=== PATIENT | female | born 1945 | race Caucasian/White ===

== ENCOUNTER → 2016-12-23 | Outpatient (CLI) | payer OTHER | LOC: FIMAGING 14:58 | PROVIDERS: ATTEND Physician Assistant | DX: Z01.818 Encounter for other preprocedural examination (principal); K44.9 Diaphragmatic hernia without obstruction or gangrene; Z87.891 Personal history of nicotine dependence | CPT/HCPCS: 36415-PO; G0463-PO ==

== ENCOUNTER 2017-01-17 08:47 | Inpatient (IN) | payer OTHER ==
--- NOTE | 2017-01-16 18:44 | GHP ---
[f rep st] PREOP HISTORY AND PHYSICAL DATE OF ADMISSION: 01/17/2017 HISTORY: The patient is a 71-year-old female, who presents with quite chronic and severe left knee pain, swelling, and stiffness. About 12 years ago, she had an allograft ACL reconstruction. Her knee has been stable. For the last year, she has been having pain, swelling, mechanical symptoms, largest focus laterally. She gets a sense of grinding and ratcheting in the knee. This impacts her gait, her activities of daily living. Her symptoms prompted an MRI that shows tricompartment osteoarthritis. Most severely, the lateral aspect of the left knee has a large broad areas of eefu-pe-pbte contact and wear. She has tried appropriate conservative management of her knee. She is significantly limited at this point and has elected to undergo a left total knee arthroplasty. PAST MEDICAL HISTORY: Significant, she has a history of persistent insomnia, obstructive sleep apnea, central sleep apnea, parasomnia, restless legs, cataplexy, and narcolepsy, GI reflux. She has a history of breast cancer. She has had peripheral vascular disease and femoral artery stents. She has had many surgeries. MEDICATIONS: Atorvastatin 20 mg p.o. daily; clonazepam 1 mg tablet, 1 tablet at bedtime; gabapentin 300 mg tablets at bedtime; losartan hydrochlorothiazide 100/125 one tablet daily; methylphenidate 20 mg tablets twice daily; metoprolol ER 25 extended release q.24; omeprazole 40 mg p.o. daily; potassium chloride ER 10 mEq 3 times a day; pramipexole 0.125 mg tablets twice a day; sulfasalazine 500 mg tablet delayed release t.i.d.; temazepam 30 mg tablets, 1 tablet q.h.s.; venlafaxine ER 150 mg capsules extended release q.24; Coumadin or warfarin 5 mg p.o. daily. ALLERGIES: She has an allergy to penicillin, shellfish, and iodinated contrast media. SOCIAL HISTORY: She is a 1/2 vvhj-civ-ziz smoker. REVIEW OF SYSTEMS: See medical history. PHYSICAL EXAMINATION: GENERAL: The patient is a well-developed, well- nourished female, in no apparent distress. HEAD AND NECK: Normocephalic, atraumatic. CHEST: Clear. CARDIOVASCULAR: Regular rate and rhythm. ABDOMEN : Soft. NEUROLOGIC: She is alert and oriented x3. Exam of the left knee shows full extension. She flexes to about 120 degrees. She has an effusion. No erythema or warmth. Angel Luis test shows an end point. Negative pivot shift. No posterior sag. Collateral ligament stable. She does have some joint line tenderness. Positive lateral Neeraj test. She has about 10 degrees of valgus alignment. IMPRESSION: Left knee osteoarthrosis, predominantly fatt-ld-foqe lateral compartment. PLAN: A left total knee arthroplasty. Benefits and risks of surgery have been reviewed. She understands that the risks include infection, damage to blood vessels or nerves, failure or loosening of components, need for revision, blood clot in the leg or lungs, bleeding and the need for transfusion. She has signed a consent form and she wishes to proceed. /[id number]/MODL MTDD
[2017-01-17] MEDS ORDERED: ceFAZolin 1 GM/5 ML SYR ONE (09:33)
[2017-01-17] MEDS ORDERED: DEXAMETHASONE 4 MG/ML VIAL ONE (09:50)
[2017-01-17] MEDS ORDERED: FAMOTIDINE 20 MG TAB ONE (09:50)
[2017-01-17] MEDS ORDERED: ACETAMINOPHEN 325 MG TAB ONE (09:51)
[2017-01-17 10:00] LABS: INR 1.1 (0.83-1.16); PROTIME(PATIENT) 14.1 SEC (12.0-15.0)
[2017-01-17] MEDS ORDERED: ACETAMINOPHEN 325 MG TAB PO ONE (10:00)
[2017-01-17] MEDS ORDERED: CHLORHEXIDINE GLUC HIBICLENS 118 ML BTL TP ONE (10:00)
[2017-01-17] MEDS ORDERED: CEFAZOLIN 2 GM/DEXTR 100 ML IV ONE (10:00)
[2017-01-17] MEDS ORDERED: POVIDONE-IODINE 20 ML in SODIUM CL IRRIG SOLUTION 500 ML IRR ONE (10:00)
[2017-01-17] MEDS ORDERED: ROPI/epiNEPH/KETOROLAC JOINT COCKTAIL IU ONE (10:00)
[2017-01-17] MEDS ORDERED: DEXAMETHASONE 4 MG/ML VIAL IVP ONE (10:00)
[2017-01-17] MEDS ORDERED: FAMOTIDINE 20 MG TAB PO ONE (10:00)
[2017-01-17] MEDS ORDERED: MIDAZOLAM 2 MG/2 ML VIAL ONE ×2 (10:00→10:06)
[2017-01-17] MEDS ORDERED: fentaNYL 100 MCG/2 ML INJ ONE (10:06)
[2017-01-17] MEDS ORDERED: PROPOFOL/EMULSION 500 MG/50 ML BOTTLE IV ONE (10:06)
[2017-01-17] MEDS ORDERED: LIDO/EPI 1% **for epidural** 30 ML SDV ONE (10:26)
[2017-01-17] MEDS ORDERED: LIDOCAINE 1% 5 ML SDV ONE (10:27)
[2017-01-17] MEDS ORDERED: ONDANSETRON 4 MG/2 ML VIAL ONE (11:51)
[2017-01-17] MEDS ORDERED: ROPIVACAINE HCL 150 MG/30 ML INJ ONE (11:51)
[2017-01-17] MEDS ORDERED: BUPIVACAINE 0.5% 30 ML SDV ONE (12:20)
[2017-01-17] MEDS ORDERED: DEPO METHYLPREDNISOLONE 40 MG/ML SDV ONE (12:21)
[2017-01-17] MEDS ORDERED: DIPHENOXYLATE/ATROPINE LOMOTIL 1 TAB PO PRN (12:53)
[2017-01-17] MEDS ORDERED: diphenhydrAMINE 25 MG CAP PO PRN (12:53)
[2017-01-17] MEDS ORDERED: ONDANSETRON 4 MG/2 ML VIAL IVP PRN (12:53)
[2017-01-17] MEDS ORDERED: POLYETHYLENE GLYCOL 3350 17 GM PKT PO PRN (12:53)
[2017-01-17] MEDS ORDERED: PROMETHAZINE HCL 25 MG SUPPR PR PRN (12:53)
[2017-01-17] MEDS ORDERED: METOCLOPRAMIDE 10 MG/2 ML VIAL IVP PRN (12:53)
[2017-01-17] MEDS ORDERED: ONDANSETRON DISINTEGRATING 4 MG TAB PO PRN (12:53)
[2017-01-17] MEDS ORDERED: BISACODYL 10 MG SUPP PR PRN (12:53)
[2017-01-17] MEDS ORDERED: TEMAZEPAM 15 MG CAP PO PRN (12:53)
[2017-01-17] MEDS ORDERED: MAGNESIUM HYDROXIDE 30 ML UDCUP PO PRN (12:53)
[2017-01-17] MEDS ORDERED: LACTULOSE 20 GM/30 ML UDCUP PO PRN (12:53)
[2017-01-17] MEDS ORDERED: PHARMACY PAIN CONSULT 1 EA MISC PRN (12:53)
--- NOTE | 2017-01-17 13:56 | GOP ---
[f rep st] OPERATIVE REPORT DATE OF OPERATION: 01/17/2017 SURGEON: Onel Vargas MD MANAGER FINE: José Luis Lamb [facility] ANESTHESIOLOGIST: Avani Rojas DO PREOPERATIVE DIAGNOSIS: Left knee osteoarthritis, retained hardware. POSTOPERATIVE DIAGNOSIS: Left knee osteoarthritis, retained hardware. PROCEDURE PERFORMED: Left total knee arthroplasty with hardware removal distal femur, proximal tibi a. Also, steroid injection right knee for osteoarthritis. FINDINGS: SPECIMENS: Include excised bone. ESTIMATED BLOOD LOSS: Minimal. INDICATIONS: The patient is a 71-year-old female who presents with chronic and severe left knee marquez n. She has significant osteoarthritis qxfh-rx-djew in broad areas of the lateral compartment. A le ft total knee arthroplasty is planned. She does have history of previous ACL reconstruction and has retained hardware distal femur, proximal tibia, which is screw post fixation with a Synthes screw a nd washer. Both of these will need to be removed. DESCRIPTION OF PROCEDURE: The patient was taken to the operating room, and in the seated position, Dr. Rojas provided a spinal block. She then received IV sedation. She received Ancef IV antibiot ics. She was placed supine with a towel beneath the left hip to neutralize her rotation. Tournique t was fit high on the left thigh. The left leg was prepped and draped with chlorhexidine in the usu al fashion. The limb was elevated, exsanguinated, the tourniquet inflated to 275 mmHg. I made a lo ngitudinal incision in the midline, dissected through subcutaneous tissue, and used a medial parapat ellar arthrotomy. Patella was inverted, measured its thickness, and removed 9 mm of cartilage and b one to accommodate the implant. The patella was sized to a 32. I drilled peg holes, and the combin ation of the sleetmute patella and the trial component restored the thickness of the patella. By inver ting the patella, I was able to dissect down to the screw in the distal femur. I did need to make a small incision about an inch along the distal lateral thigh so that I could engage the screw with a screwdriver. Because this was a partially threaded screw, I did need to grasp the screw with plier s, vice brass bobbin winder, and then hold retraction pressure on it to get the threads to re-engage and allow me t o back out the screw. It was removed in its entirety with no breakage. The washer was as well as w ell as the suture. I then flexed the knee. I drilled a pilot plant supervisor hole in the distal femur. I used an intramedullary device and a 6-degree valgus cut with +2 extra bone because of the flexion contractur e, and I made a distal cut. I sized the femur between a size 4 and a 5, and I downsized to a 4, mov ed the cutting block anteriorly to avoid notching and completed my chamfer cuts and notch cuts for t his bi-cruciate stabilized knee. The trial component was a good fit. On the tibia, I used an extra medullary device. I dialed in the rotation, posterior slope. I sized the tibia after the cut to a size 3. I dialed in the rotation and completed the tibial prep. This did require removing the scre w and washer in the tibia in order to complete the tibial prep. A size 9 trial allowed good range o f motion. All the components were removed. All the surfaces were jet lavaged with antibiotic irrig ation. I used methylmethacrylate on the tibia. Size 3 component was hammered into place in the samra ropriate rotation. Cement was applied to the femur. Likewise, the femoral component was applied ov er the cement mantle, and I placed a liner and extended the knee to provide pressure. The patellar component was held over a cement mantle with a clamp. I did trial reductions. I went with a 9 mm t hick crosslink poly liner. This was snapped into the tibial tray, and the total knee was then compl ete. Copious antibiotic irrigation was used. I infiltrated a total joint cocktail through the soft tissues. The arthrotomy was closed with interrupted 0 sutures of 0 Mersilene. The IT band was cheli sed with 2-0 Monocryl. The subcutaneous tissue was closed with 2-0 Monocryl, and the skin was close d in all wounds with teresa. The wound was dressed with Adaptic, 4 x 4's, sterile Webril, and a lo ng leg stocking. The tourniquet time was about 1 hour and 45 minutes. There were no complications. DRAINS: No drains. COUNTS: All counts were correct. I did use a chlorhexidine prep for the right knee, and through a lateral approach, used 1 cc of Depo -Medrol 40 mg/cc, and 3 cc of 0.5% plain Marcaine to inject the arthritic right knee at the patient' s request. SUMMARY OF COMPONENTS: This is a [employer] bi-cruciate stabilized knee, all componen ts cemented. The femur is an Oxinium femur size 4, tibia size 3. Patella is a 32, and the articula r liner is 9 mm thick. My surgical aides teacher was a medical necessity for this total knee replacement. /[id number]/MODL
[2017-01-17] MEDS: oxyCODONE IR 5 MG TAB PO PRN ×2 (14:35→22:41)
[2017-01-17] MEDS: ceFAZolin 2 GM/DEXTROSE 100 ML IV SCH ×2 (14:36→21:16)
[2017-01-17] MEDS: LR 1,000 ML IV SCH (14:37)
[2017-01-17] MEDS: POTASSIUM CL 10 MEQ TAB PO SCH ×2 (15:36→21:16)
[2017-01-17] MEDS: sulfaSALAzine 500 MG TAB PO SCH ×2 (15:37→21:17)
[2017-01-17] MEDS ORDERED: WARFARIN SODIUM 2.5 MG TAB PO SCH (16:00)
[2017-01-17] MEDS: ACETAMINOPHEN 325 MG TAB PO SCH ×2 (17:57→23:47)
[2017-01-17] MEDS: SENNOSIDES/DOCUSATE SODIUM TAB PO SCH (21:14)
[2017-01-17] MEDS: GABAPENTIN 300 MG CAP PO SCH (21:14)
[2017-01-17] MEDS: FAMOTIDINE 20 MG TAB PO SCH (21:15)
[2017-01-17] MEDS: clonazePAM 0.5 MG TAB PO SCH (21:15)
[2017-01-17] MEDS: WARFARIN SODIUM 2.5 MG TAB PO SCH (21:16)
[2017-01-17] MEDS: PRAMIPEXOLE 0.125 MG TAB PO SCH (21:18)
[2017-01-17] MEDS: TEMAZEPAM 15 MG CAP PO PRN (22:34)
[2017-01-17] MEDS: ASPIRIN 325 MG TAB PO SCH (22:43)
[2017-01-18] MEDS: CYCLOBENZAPRINE 10 MG TAB PO PRN ×2 (02:53→21:18)
[2017-01-18 04:49] LABS: HEMATOCRIT 29.3 % (38.0-47.0); HEMOGLOBIN 9.7 g/dL (12.6-16.3)
[2017-01-18] MEDS: ACETAMINOPHEN 325 MG TAB PO SCH ×4 (05:44→23:41)
--- NOTE | 2017-01-18 08:28 | SOAPPROG ---
SOAP Progress Note Assessment/Plan: Assessment: 01/18/17 POD#1 L TKA, pain controlled, xray fine, dressing changed yest, some drainage Plan: 01/18/17 08:25 PT/OT, multiple med problems, will need rehab stay- [facility] Objective: Vital Signs Temp Pulse Resp BP Pulse Ox 36.6 C 91 18 126/70 H 94 01/18/17 03:18 01/18/17 07:55 01/18/17 07:55 01/18/17 07:55 01/18/17 07:55 Laboratory Results 01/18/17 04:26 01/17/17 01/18/17 01/19/17 05:59 05:59 05:59 Intake Total 3625 Output Total 1205 Balance 2420 PT 14.1 SEC (12.0-15.0) 01/17/17 09:40 INR 1.10 (0.83-1.16) 01/17/17 09:40 ICD10 Worksheet Patient Problems: Problems Problem Status Onset Osteoarthritis of left knee Acute - ICD10 Problem Qualifiers (1) Osteoarthritis of left knee Qualifiers: Osteoarthritis type: O
[2017-01-18] MEDS ORDERED: NON-FORMULARY NEW DRUG (Losartan/Hydrochlorothiazide [Losartan-Hctz 100-25 Mg Tab] 1 EACH) PO SCH (09:00)
[2017-01-18] MEDS ORDERED: NON-FORMULARY NEW DRUG (Omeprazole [Prilosec 20 Mg] 20 MG) PO SCH (09:00)
[2017-01-18] MEDS: PRAMIPEXOLE 0.125 MG TAB PO SCH ×2 (09:18→19:54)
[2017-01-18] MEDS: LOSARTAN/HCTZ 50/12.5 1 TAB PO SCH (09:18)
[2017-01-18] MEDS: FAMOTIDINE 20 MG TAB PO SCH ×2 (09:19→19:55)
[2017-01-18] MEDS: POTASSIUM CL 10 MEQ TAB PO SCH ×3 (09:19→19:59)
[2017-01-18] MEDS: PANTOPRAZOLE SODIUM 40 MG TAB PO SCH (09:19)
[2017-01-18] MEDS: ATORVASTATIN CALCIUM 20 MG TAB PO SCH (09:19)
[2017-01-18] MEDS: VENLAFAXINE XR 75 MG CAP PO SCH (09:19)
[2017-01-18] MEDS: CHOLECALCIFEROL VIT D3 2,000 UNITS TAB/CAP PO SCH (09:19)
[2017-01-18] MEDS: SENNOSIDES/DOCUSATE SODIUM TAB PO SCH ×2 (09:20→19:54)
[2017-01-18] MEDS: METOPROLOL SUCCINATE XR 25 MG TAB PO SCH (09:20)
[2017-01-18] MEDS: oxyCODONE IR 5 MG TAB PO PRN ×4 (09:31→21:14)
[2017-01-18] MEDS: KETOROLAC 30 MG/1 ML SDV IVP PRN (09:31)
[2017-01-18] MEDS: ASPIRIN 325 MG TAB PO SCH (10:03)
[2017-01-18] MEDS: sulfaSALAzine 500 MG TAB PO SCH ×3 (11:35→19:59)
[2017-01-18] MEDS: GABAPENTIN 300 MG CAP PO SCH (19:52)
[2017-01-18] MEDS: TEMAZEPAM 15 MG CAP PO PRN (19:52)
[2017-01-18] MEDS: clonazePAM 0.5 MG TAB PO SCH (19:53)
[2017-01-18] MEDS: WARFARIN SODIUM 2.5 MG TAB PO SCH (19:53)
[2017-01-18] MEDS: LR 1,000 ML IV SCH (23:51)
[2017-01-19 05:26] LABS: HEMATOCRIT 24.4 % (38.0-47.0)
[2017-01-19] MEDS: ACETAMINOPHEN 325 MG TAB PO SCH ×4 (05:28→23:06)
[2017-01-19] MEDS: PRAMIPEXOLE 0.125 MG TAB PO SCH ×2 (07:57→21:25)
[2017-01-19] MEDS: VENLAFAXINE XR 75 MG CAP PO SCH (07:57)
[2017-01-19] MEDS: POTASSIUM CL 10 MEQ TAB PO SCH ×3 (07:58→21:25)
[2017-01-19] MEDS: FAMOTIDINE 20 MG TAB PO SCH ×2 (07:58→21:25)
[2017-01-19] MEDS: sulfaSALAzine 500 MG TAB PO SCH ×3 (07:58→21:24)
[2017-01-19] MEDS: CHOLECALCIFEROL VIT D3 2,000 UNITS TAB/CAP PO SCH (07:58)
[2017-01-19] MEDS: KETOROLAC 30 MG/1 ML SDV IVP PRN (07:59)
[2017-01-19] MEDS: ATORVASTATIN CALCIUM 20 MG TAB PO SCH (07:59)
[2017-01-19] MEDS: PANTOPRAZOLE SODIUM 40 MG TAB PO SCH (07:59)
[2017-01-19] MEDS: SENNOSIDES/DOCUSATE SODIUM TAB PO SCH ×2 (10:09→21:24)
[2017-01-19] MEDS: LOSARTAN/HCTZ 50/12.5 1 TAB PO SCH (12:41)
[2017-01-19] MEDS: METOPROLOL SUCCINATE XR 25 MG TAB PO SCH (12:42)
[2017-01-19] MEDS: oxyCODONE IR 5 MG TAB PO PRN (16:52)
--- NOTE | 2017-01-19 17:25 | SOAPPROG ---
SOAP Progress Note Assessment/Plan: Assessment: 01/18/17 POD#1 L TKA, pain controlled, xray fine, dressing changed yest, some drainage 01/19/17, POD#2, has been up Plan: 01/18/17 08:25 PT/OT, multiple med problems, will need rehab stay- [facility] 01/19/17 17:23 To [facility] jeannie, oxy Rx in chart, back on Coumadin Objective: Vital Signs Temp Pulse Resp BP Pulse Ox 36.4 C 128 H 20 117/53 L 93 01/19/17 07:11 01/19/17 16:00 01/19/17 16:00 01/19/17 16:00 01/19/17 16:00 Laboratory Results 01/19/17 04:32 01/18/17 01/19/17 01/20/17 05:59 05:59 05:59 Intake Total 3625 1350 500 Output Total 1205 900 Balance 2420 450 500 PT 14.1 SEC (12.0-15.0) 01/17/17 09:40 INR 1.10 (0.83-1.16) 01/17/17 09:40 ICD10 Worksheet Patient Problems: Problems Problem Status Onset Chronic Disease Mgmt/Transitional Care Acute Osteoarthritis of left knee Acute - ICD10 Problem Qualifiers (1) Osteoarthritis of left knee Qualifiers: Osteoarthritis type: O
[2017-01-19] MEDS ORDERED: NS 1,000 ML IV SCH (20:15)
[2017-01-19] MEDS: GABAPENTIN 300 MG CAP PO SCH (21:24)
[2017-01-19] MEDS: WARFARIN SODIUM 2.5 MG TAB PO SCH (21:25)
[2017-01-19] MEDS: clonazePAM 0.5 MG TAB PO SCH (21:25)
[2017-01-19] MEDS ORDERED: LR 1,000 ML IV ONE (21:30)
[2017-01-19 21:53] LABS: HEMATOCRIT 24.9 % (38.0-47.0); HEMOGLOBIN 8.4 g/dL (12.6-16.3); MEAN CELL HEMOGLOBIN 33.6 pg (27.9-34.1); MEAN CELL HEMOGLOBIN CONCENTR. 33.7 g/dL (32.4-36.7); MEAN CELL VOLUME 99.6 fL (81.5-99.8); RED BLOOD CELL COUNT 2.5 10^6/uL (4.18-5.33); RED CELL DISTRIBUTION WIDTH 13.1 % (11.5-15.2)
[2017-01-19] MEDS: CYCLOBENZAPRINE 10 MG TAB PO PRN (23:05)
[2017-01-20 04:51] LABS: % IMMATURE GRANULYOCYTES 0.9 % (0.0-1.1); ABSOLUTE IMMATURE GRANULOCYTES 0.14 10^3/uL (0.00-0.10); ADD DIFF? NO; ADD MORPH? NO; ADD SCAN? NO; ATYPICAL LYMPHOCYTE FLAG 0 (0-99); FRAGMENT RBC FLAG 0 (0-99); HEMATOCRIT 25.2 % (38.0-47.0); HEMOGLOBIN 8.3 g/dL (12.6-16.3); LEFT SHIFT FLG 10 (0-99); LIPEMIA HEMOLYSIS FLAG 80 (0-99); MEAN CELL HEMOGLOBIN 32.8 pg (27.9-34.1); MEAN CELL HEMOGLOBIN CONCENTR. 32.9 g/dL (32.4-36.7); MEAN CELL VOLUME 99.6 fL (81.5-99.8); PLATELET CLUMPS FLAG 20 (0-99); PLATELET COUNT 198 10^3/uL (150-400); RED BLOOD CELL COUNT 2.53 10^6/uL (4.18-5.33); RED CELL DISTRIBUTION WIDTH 13.2 % (11.5-15.2)
[2017-01-20 04:57] LABS: INR 1.57 (0.83-1.16); PROTIME(PATIENT) 18.8 SEC (12.0-15.0)
[2017-01-20 05:06] LABS: ALANINE AMINOTRANSFERASE 43 IU/L (9-52); ALBUMIN 3.3 g/dL (3.5-5.0); ALKALINE PHOSPHATASE 127 IU/L (38-126); ANION GAP 8 mEq/L (8-16); ASPARTATE AMINOTRANSFERASE 48 IU/L (14-46); BILIRUBIN,TOTAL 1.2 mg/dL (0.1-1.4); CALCIUM 8.6 mg/dL (8.5-10.4); CARBON DIOXIDE 24 mEq/l (22-31); CHLORIDE 104 mEq/L (97-110); CREATININE 0.7 mg/dL (0.6-1.0); GLOMERULAR FILTRATION RATE > 60; GLUCOSE 104 mg/dL (70-100); POTASSIUM 4.1 mEq/L (3.5-5.2); SODIUM 136 mEq/L (134-144); TOTAL PROTEIN 5.6 g/dL (6.3-8.2)
--- NOTE | 2017-01-20 05:09 | CPEKG ---
Heart Rate: 103 RR Interval: 583 P-R Interval: 180 QRSD Interval: 72 QT Interval: 336 QTC Interval: 440 P Kouts: 60 QRS Kouts: 23 T Wave Kouts: 85 EKG Severity - BORDERLINE ECG - EKG Impression: SINUS TACHYCARDIA EKG Impression: BORDERLINE T WAVE ABNORMALITIES Electronically Signed By: Juan Matt 20-Jan-2017 08:59:15
--- NOTE | 2017-01-20 05:28 | PDHOSCONS ---
Hospitalist Consult Hospitalist Consult: Reason for consult: tachycardia, hypoxia post-op Consulting service: Ortho surgery HPI: Patient is a 71 year old female with HLD, HTN, PAD s/p femoral PCI, ROSITA, GERD and cataplexy/narcolepsy who was admitted to [facility] on 01/16 for elective L TKA due to severe osteoarthritis of her L knee. This surgery was completed on 01/17 without complication and she was returned to the med/surg floor hemodynamically stable with planning for dc to DL being initiated. On the evening of 01/19, patient was noted to be tachycardic to the 130-range, as well as hypoxic to 88% on room air, prompting a hospitalist consult. On my evaluation, patient was sleeping comfortably with her nasal CPAP in place. She reported that she did notice a new cough over the past day, but denied any obvious fever, chills, headache, shortness of breath or chest pain. She reported a new RUQ pain also, but denied nausea, vomiting or diarrhea, had been tolerating her diet well. She has not yet had a BM post-op, but is passing flatus. Longitudinal PMH: ROSITA on CPAP nightly Hypertension Hyperlipidemia PAD s/p femoral a PCI cataplexy/narcolepsy with emotional stress GERD PSH: L ACL repair Hand surgery L TKA 01/17/2017 Allergies: PCN, Iodine, shellfish SH: former tobacco use, quit 5 years ago; 1 glass wine nightly; no recreational drug use. Patient lives alone, is independent at baseline. FH: noncontributary. PE: BP 101/58 HR 100 O2 Sat 94% on CPAP 2L Gen: obese F, NAD HEENT: mmm, PERRL Neck: supple, no JVD CV: RRR, no murmurs Resp: CTA, no crackles or rhonchi Abd: +BS, significant tenderness to palpation of RUQ, no other tenderness; no guarding or rebound Ext: LLE in brace, peripheral pulses palpable Neuro: AO x 3, answers questions/follows commands appropriately; CN II-XII grossly intact; moving all extremities 02/18 Labs: CBC: 16.6 > 8.3 / 25.2 < 198 PT/INR: 18/1.57 DDimer: 1.23 BMP: 136 / 4.1 / 104 / 24 / 13 / 0.7 < 104 LFTs: 5.6 / 3.3 / 1.2 / / 48 / 43 < 127 Imaging: CXR: L lower lobe infiltrate EKG: sinus tachycardia without obvious st/t wave changes Impression/plan: Patient is a 71 year old female with HTN, HLD, cataplexy, PAD s/p femoral PCI, ROSITA, GERD and severe osteoarthritis of L knee who underwent L TKA on 01/17. Post- op course has been complicated by hypoxia and tachycardia on 01/19, for which the hospitalist service was consulted. Initial work up for this has revealed new leukocytosis and cxr showing LLL infiltrate, appearing consistent with pneumonia. #acute hypoxic respiratory failure Patient POD 2 developed hypoxia and tachycardia, which could be due to atelectasis, however, CXR reveals new LLL infiltrate. This as well as new leukocytosis makes sepsis due to acute LLL pneumonia likely. Differential also include acute pulmonary embolism, given patient has been off anticoagulation in the perioperative period (has been on SCDs, restarted on coumadin on 01/19). Patient has noted contrast dye allergy, so cannot obtain CT angio, will consider V/Q for definitive PE assessment, if no significant improvement with antibiotics. # tachycardia EKG shows sinus tachycardia without obvious ischemic changes. Likely related to early/mild sepsis, improved with IVF bolus and hydration. Could also be related to relative anemia from post-op blood loss. H/H seems to have stabilized, will cont to monitor HR and CBC. # RUQ abdominal pain On my exam, patient complained of acute RUQ abdominal pain and had positive yates's sign on exam. Will check Abd US to r/o gallbladder pathology. LFTs appear normal. # HLD/HTN Cont home meds. # dispo: DC to DL pending above evalation # gen: Full code
[2017-01-20] MEDS: ACETAMINOPHEN 325 MG TAB PO SCH ×4 (05:47→18:18)
--- NOTE | 2017-01-20 07:52 | SOAPPROG ---
SOAP Progress Note Assessment/Plan: Assessment: 01/18/17 POD#1 L TKA, pain controlled, xray fine, dressing changed yest, some drainage 01/19/17, POD#2, has been up 01/20/17, POD#3, yesterday dev tackycardia, LLL infiltrate/ pneumonia, hospitalist consult appreciated Plan: 01/18/17 08:25 PT/OT, multiple med problems, will need rehab stay- [facility] 01/19/17 17:23 To [facility] jeannie, oxy Rx in chart, back on Coumadin 01/20/17 07:49 Abx, hold on transfer Objective: Vital Signs Temp Pulse Resp BP Pulse Ox 37.1 C 108 H 16 101/58 L 90 L 01/19/17 23:34 01/20/17 06:39 01/20/17 06:39 01/19/17 23:58 01/20/17 06:39 Laboratory Results 01/20/17 04:39 01/20/17 04:39 01/19/17 01/20/17 01/21/17 05:59 05:59 05:59 Intake Total 1350 2050 Output Total 900 900 Balance 450 1150 PT 18.8 SEC (12.0-15.0) H 01/20/17 04:39 INR 1.57 (0.83-1.16) H 01/20/17 04:39 ICD10 Worksheet Patient Problems: Problems Problem Status Onset Chronic Disease Mgmt/Transitional Care Acute Osteoarthritis of left knee Acute - ICD10 Problem Qualifiers (1) Osteoarthritis of left knee Qualifiers: Osteoarthritis type: O
[2017-01-20] MEDS: PRAMIPEXOLE 0.125 MG TAB PO SCH ×2 (08:03→20:23)
[2017-01-20] MEDS: CHOLECALCIFEROL VIT D3 2,000 UNITS TAB/CAP PO SCH (08:04)
[2017-01-20] MEDS: SENNOSIDES/DOCUSATE SODIUM TAB PO SCH ×2 (08:04→20:28)
[2017-01-20] MEDS: POTASSIUM CL 10 MEQ TAB PO SCH ×3 (08:04→20:22)
[2017-01-20] MEDS: VENLAFAXINE XR 75 MG CAP PO SCH (08:05)
[2017-01-20] MEDS: PANTOPRAZOLE SODIUM 40 MG TAB PO SCH (08:05)
[2017-01-20] MEDS: FAMOTIDINE 20 MG TAB PO SCH ×2 (08:05→20:23)
[2017-01-20] MEDS: ATORVASTATIN CALCIUM 20 MG TAB PO SCH (08:05)
[2017-01-20] MEDS: sulfaSALAzine 500 MG TAB PO SCH ×3 (08:05→20:23)
[2017-01-20] MEDS: METOPROLOL SUCCINATE XR 25 MG TAB PO SCH (08:09)
[2017-01-20] MEDS: LOSARTAN/HCTZ 50/12.5 1 TAB PO SCH (08:09)
[2017-01-20] MEDS ORDERED: methylPREDNISolone SOD SUCC 125 MG/2 ML VIAL IVP ONE (11:51)
[2017-01-20] MEDS ORDERED: FAMOTIDINE 20 MG in NS 100 ML IV ONE (11:57)
[2017-01-20] MEDS ORDERED: FAMOTIDINE 20 MG/NACL 50 ML IV ONE (12:30)
[2017-01-20] MEDS ORDERED: IOPAMIDOL (ISOVUE 370) 100 ML BTL IV ONE (12:43)
[2017-01-20] MEDS ORDERED: FUROSEMIDE 40 MG/4 ML VIAL IVP ONE (15:53)
--- NOTE | 2017-01-20 16:01 | HOSPPROG ---
Hospitalist Progress Note Assessment/Plan: * postoperative hypoxia tachycardia * CT scan chest negative for pulmonary embolism * I am wondering if there may be an element of fluid overload * will give a dose of Lasix and stop IV fluids * in sinus rhythm * recent left knee arthroplasty * anemia secondary to acute blood loss * probably hold off on blood for now * abdominal pain * resolved * abdominal ultrasound negative *ROSITA on CPAP nightly * history of Hypertension * on metoprolol *Hyperlipidemia *PAD s/p femoral a PCI\ * had been on Coumadin which has been restarted but subtherapeutic *cataplexy/narcolepsy with emotional stress *GERD * DVT prophylaxis * will start Lovenox while Coumadin comes therapeutic Subjective: does not feel particularly short of breath. No cough Objective: Vital Signs Temp Pulse Resp BP Pulse Ox 36.8 C 113 H 18 111/61 87 L 01/20/17 15:48 01/20/17 15:48 01/20/17 15:48 01/20/17 15:48 01/20/17 15:48 Laboratory Results 01/20/17 04:39 01/20/17 04:39 01/19/17 01/20/17 01/21/17 05:59 05:59 05:59 Intake Total 1350 2050 Output Total 900 900 Balance 450 1150 PT 18.8 SEC (12.0-15.0) H 01/20/17 04:39 INR 1.57 (0.83-1.16) H 01/20/17 04:39 discussed with Orthopedic surgery chest x-ray personally viewed interpreted as well as CT scan of the chest, mild atelectasis and bilateral pleural effusions - Physical Exam Constitutional: no apparent distress, appears nourished, not in pain Eyes: anicteric sclera, EOMI Ears, Nose, Mouth, Throat: moist mucous membranes, hearing normal, ears appear normal Cardiovascular: no murmur, rub, or gallop, tachycardia Respiratory: no respiratory distress, no rales or rhonchi, clear to auscultation Gastrointestinal: normoactive bowel sounds, soft, non-tender abdomen, no palpable masses Skin: warm Neurologic: AAOx3 Psychiatric: interacting appropriately, not anxious, not encephalopathic, thought process linear ICD10 Worksheet Patient Problems: Problems Problem Status Onset Chronic Disease Mgmt/Transitional Care Acute Osteoarthritis of left knee Acute
[2017-01-20] MEDS: ENOXAPARIN 40 MG/0.4 ML SYR SC SCH (16:22)
[2017-01-20] MEDS: GABAPENTIN 300 MG CAP PO SCH (20:23)
[2017-01-20] MEDS: WARFARIN SODIUM 2.5 MG TAB PO SCH (20:23)
[2017-01-20] MEDS: clonazePAM 0.5 MG TAB PO SCH (20:23)
[2017-01-20] MEDS: oxyCODONE IR 5 MG TAB PO PRN (21:40)
[2017-01-20] MEDS: CYCLOBENZAPRINE 10 MG TAB PO PRN (21:41)
[2017-01-21] MEDS: ACETAMINOPHEN 325 MG TAB PO SCH ×4 (02:17→17:38)
[2017-01-21 05:21] LABS: ABSOLUTE NRBC COUNT 0.02 10^3/uL (0-0.01); ADD DIFF? YES; ADD MORPH? NO; ADD SCAN? NO; ATYPICAL LYMPHOCYTE FLAG 0 (0-99); FRAGMENT RBC FLAG 0 (0-99); HEMATOCRIT 25.6 % (38.0-47.0); HEMOGLOBIN 8.4 g/dL (12.6-16.3); LEFT SHIFT FLG 0 (0-99); LIPEMIA HEMOLYSIS FLAG 80 (0-99); MEAN CELL HEMOGLOBIN 33.5 pg (27.9-34.1); MEAN CELL HEMOGLOBIN CONCENTR. 32.8 g/dL (32.4-36.7); MEAN PLATELET VOLUME 10.2 fL (8.7-11.7); NRBC-AUTO% 0.1 % (0.0-0.2); PLATELET CLUMPS FLAG 0 (0-99); PLATELET COUNT 240 10^3/uL (150-400); RED BLOOD CELL COUNT 2.51 10^6/uL (4.18-5.33); RED CELL DISTRIBUTION WIDTH 13.4 % (11.5-15.2)
[2017-01-21 05:37] LABS: ANION GAP 10 mEq/L (8-16); CALCIUM 8.9 mg/dL (8.5-10.4); CARBON DIOXIDE 23 mEq/l (22-31); CHLORIDE 104 mEq/L (97-110); CREATININE 0.7 mg/dL (0.6-1.0); GLOMERULAR FILTRATION RATE > 60; GLUCOSE 109 mg/dL (70-100); POTASSIUM 4.4 mEq/L (3.5-5.2); SODIUM 137 mEq/L (134-144)
[2017-01-21 06:37] LABS: PLATELET ESTIMATE ADEQUATE (ADEQ); POLYCHROMASIA 1+
[2017-01-21] MEDS: PRAMIPEXOLE 0.125 MG TAB PO SCH ×2 (09:21→21:09)
[2017-01-21] MEDS: LOSARTAN/HCTZ 50/12.5 1 TAB PO SCH (09:21)
[2017-01-21] MEDS: METOPROLOL SUCCINATE XR 25 MG TAB PO SCH (09:22)
[2017-01-21] MEDS: ATORVASTATIN CALCIUM 20 MG TAB PO SCH (09:22)
[2017-01-21] MEDS: VENLAFAXINE XR 75 MG CAP PO SCH (09:22)
[2017-01-21] MEDS: CHOLECALCIFEROL VIT D3 2,000 UNITS TAB/CAP PO SCH (09:24)
[2017-01-21] MEDS: POTASSIUM CL 10 MEQ TAB PO SCH ×3 (09:24→21:06)
[2017-01-21] MEDS: SENNOSIDES/DOCUSATE SODIUM TAB PO SCH ×2 (09:24→21:08)
[2017-01-21] MEDS: sulfaSALAzine 500 MG TAB PO SCH ×3 (09:25→21:08)
[2017-01-21] MEDS: PANTOPRAZOLE SODIUM 40 MG TAB PO SCH (09:25)
[2017-01-21] MEDS: ENOXAPARIN 40 MG/0.4 ML SYR SC SCH (09:25)
[2017-01-21] MEDS: FAMOTIDINE 20 MG TAB PO SCH ×2 (09:25→21:08)
[2017-01-21 09:35] LABS: INR 2.47 (0.83-1.16)
[2017-01-21 12:12] LABS: COLOR YELLOW; LEUKOCYTE ESTERASE,URINE NEGATIVE (NEGATIVE); NITRITE,URINE NEGATIVE (NEGATIVE)
--- NOTE | 2017-01-21 14:00 | HOSPPROG ---
Hospitalist Progress Note Assessment/Plan: * postoperative hypoxia tachycardia * CT scan chest negative for pulmonary embolism * Did give a little bit of Lasix yesterday * oxygen has been able to be weaned to room air * heart rate was still high this morning but seems to be better now * I am not sure what the initial causes possibly fluid overload * probably can go to rehab tomorrow if continues to remain stable *? pneumonia * on Levaquin for now - will probably do very short course like 5 days * persistent leukocytosis * will check UA and blood cultures * recent left knee arthroplasty * anemia secondary to acute blood loss * probably hold off on blood for now * abdominal pain * resolved * abdominal ultrasound negative *ROSITA on CPAP nightly * history of Hypertension * on metoprolol *Hyperlipidemia *PAD s/p femoral a PCI\ * had been on Coumadin which has been restarted but subtherapeutic *cataplexy/narcolepsy with emotional stress *GERD * DVT prophylaxis * will start Lovenox while Coumadin comes therapeutic Subjective: feels well. I reviewed the medications and she is taking them exactly as she has taken before. She does not feel anxious. No shortness of breath. Objective: Vital Signs Temp Pulse Resp BP Pulse Ox 36.8 C 58 L 12 124/73 H 89 L 01/21/17 12:22 01/21/17 12:22 01/21/17 12:22 01/21/17 12:22 01/21/17 12:22 Laboratory Results 01/21/17 04:44 01/21/17 04:44 01/20/17 01/21/17 01/22/17 05:59 05:59 05:59 Intake Total 2050 1175 Output Total 900 1200 Balance 1150 -25 PT 27.0 SEC (12.0-15.0) H D 01/21/17 07:37 INR 2.47 (0.83-1.16) H 01/21/17 07:37 - Physical Exam Constitutional: no apparent distress, appears nourished, not in pain Eyes: anicteric sclera, EOMI Ears, Nose, Mouth, Throat: moist mucous membranes, hearing normal, ears appear normal Cardiovascular: regular rate and rhythym, no murmur, rub, or gallop Respiratory: no respiratory distress, no rales or rhonchi, clear to auscultation Gastrointestinal: normoactive bowel sounds, soft, non-tender abdomen, no palpable masses Skin: warm Neurologic: AAOx3 Psychiatric: interacting appropriately, not anxious, not encephalopathic, thought process linear ICD10 Worksheet Patient Problems: Problems Problem Status Onset Chronic Disease Mgmt/Transitional Care Acute Osteoarthritis of left knee Acute
--- NOTE | 2017-01-21 16:41 | SOAPPROG ---
SOAP Progress Note Assessment/Plan: Assessment: 01/18/17 POD#1 L TKA, pain controlled, xray fine, dressing changed yest, some drainage 01/19/17, POD#2, has been up 01/20/17, POD#3, yesterday dev tackycardia, LLL infiltrate/ pneumonia, hospitalist consult appreciated 01/21/17. POD#4, on Levaquin for pneumonia, knee looks good, has 80 deg flex, mobility inproving Plan: 01/18/17 08:25 PT/OT, multiple med problems, will need rehab stay- [facility] 01/19/17 17:23 To [facility], oxy Rx in chart, back on Coumadin 01/20/17 07:49 Abx, hold on transfer 01/21/17 16:39 Abx, if stable :rehab Objective: Vital Signs Temp Pulse Resp BP Pulse Ox 36.9 C 114 H 20 98/69 L 91 L 01/21/17 16:00 01/21/17 16:00 01/21/17 16:00 01/21/17 16:00 01/21/17 16:00 Laboratory Results 01/21/17 04:44 01/21/17 04:44 01/20/17 01/21/17 01/22/17 05:59 05:59 05:59 Intake Total 2050 1175 Output Total 900 1200 Balance 1150 -25 PT 27.0 SEC (12.0-15.0) H D 01/21/17 07:37 INR 2.47 (0.83-1.16) H 01/21/17 07:37 ICD10 Worksheet Patient Problems: Problems Problem Status Onset Chronic Disease Mgmt/Transitional Care Acute Osteoarthritis of left knee Acute - ICD10 Problem Qualifiers (1) Osteoarthritis of left knee Qualifiers: Osteoarthritis type: O
[2017-01-21] MEDS ORDERED: WARFARIN SODIUM 2.5 MG TAB PO ONE (21:00)
[2017-01-21] MEDS: GABAPENTIN 300 MG CAP PO SCH (21:07)
[2017-01-21] MEDS: clonazePAM 0.5 MG TAB PO SCH (21:07)
[2017-01-21] MEDS: TEMAZEPAM 15 MG CAP PO PRN (21:58)
[2017-01-22] MEDS: ACETAMINOPHEN 325 MG TAB PO SCH ×5 (02:17→21:18)
[2017-01-22] MEDS: ATORVASTATIN CALCIUM 20 MG TAB PO SCH (08:56)
[2017-01-22] MEDS: CHOLECALCIFEROL VIT D3 2,000 UNITS TAB/CAP PO SCH (08:56)
[2017-01-22] MEDS: VENLAFAXINE XR 75 MG CAP PO SCH (08:56)
[2017-01-22] MEDS: PANTOPRAZOLE SODIUM 40 MG TAB PO SCH (08:57)
[2017-01-22] MEDS: PRAMIPEXOLE 0.125 MG TAB PO SCH ×2 (08:57→19:44)
[2017-01-22] MEDS: METOPROLOL SUCCINATE XR 25 MG TAB PO SCH (08:57)
[2017-01-22] MEDS: POTASSIUM CL 10 MEQ TAB PO SCH ×3 (08:57→21:19)
[2017-01-22] MEDS: oxyCODONE IR 5 MG TAB PO PRN (08:57)
[2017-01-22] MEDS: sulfaSALAzine 500 MG TAB PO SCH ×3 (08:57→21:19)
[2017-01-22] MEDS: SENNOSIDES/DOCUSATE SODIUM TAB PO SCH ×2 (08:58→19:44)
[2017-01-22] MEDS: LOSARTAN/HCTZ 50/12.5 1 TAB PO SCH (08:58)
[2017-01-22] MEDS: FAMOTIDINE 20 MG TAB PO SCH ×2 (08:59→19:44)
--- NOTE | 2017-01-22 14:45 | HOSPPROG ---
Hospitalist Progress Note Assessment/Plan: 71 yo F with hx of chronic severe left knee pain now s/p L TKA with post op hypoxia and LLL pna # acute hypoxic respiratory failure: with o2 sats of 88% on RA in post op setting, though patient relatively asymptomatic. Personally reviewed cxr/CTA and notable for BLL atelectasis with likely LLL pna as well. Doing well on low flow o2, suspect that as mobility increases will not need o2 for long # LLL pna: likely aspiration, started on levofloxacin and will plan to continue x 7 days total. # leukocytosis: in setting of above and likely related to same but has been persistent despite clinical improvement in other parameters. Should have cbc as an OP to be sure this resolves # anemia: expected post op drop in h/h, monitoring # ROSITA: continued cpap # PAD: s/p femoral pci, resumed on coumadin # dispo: will dc to snf when ok with ortho, from medical perspective ready for dc at any time Patient new to my care. Old records reviewed and summarized as above. Subjective: no significant overnight events, patient feeling well, eager to dc Objective: Vital Signs Temp Pulse Resp BP Pulse Ox 36.4 C 119 H 20 129/63 H 90 L 01/22/17 12:07 01/22/17 12:07 01/22/17 12:07 01/22/17 12:07 01/22/17 12:07 Laboratory Results 01/21/17 04:44 01/21/17 04:44 01/21/17 01/22/17 01/23/17 05:59 05:59 05:59 Intake Total 1175 800 Output Total 1200 1600 700 Balance -25 -800 -700 PT 27.0 SEC (12.0-15.0) H D 01/21/17 07:37 INR 2.47 (0.83-1.16) H 01/21/17 07:37 awake alert anicteric op clear rrr no mrg cta with left basilar crackles normal wob soft nt nd no cce warm dry well perfused oriented appropriate ICD10 Worksheet Patient Problems: Problems Problem Status Onset Chronic Disease [facility]/Transitional Care Acute Osteoarthritis of left knee Acute
[2017-01-22] MEDS: clonazePAM 0.5 MG TAB PO SCH (19:43)
[2017-01-22] MEDS: GABAPENTIN 300 MG CAP PO SCH (19:44)
[2017-01-22] MEDS: TEMAZEPAM 15 MG CAP PO PRN (19:45)
[2017-01-22] MEDS ORDERED: WARFARIN SODIUM 2.5 MG TAB PO SCH (21:00)
[2017-01-23 04:55] LABS: INR 1.39 (0.83-1.16)
[2017-01-23] MEDS: ACETAMINOPHEN 325 MG TAB PO SCH ×2 (06:45→11:25)
[2017-01-23 08:01] VITALS: RESP 18; TEMP 98.1
[2017-01-23] MEDS: LOSARTAN/HCTZ 50/12.5 1 TAB PO SCH (09:19)
[2017-01-23] MEDS: ATORVASTATIN CALCIUM 20 MG TAB PO SCH (09:19)
[2017-01-23] MEDS: FAMOTIDINE 20 MG TAB PO SCH (09:19)
[2017-01-23] MEDS: CHOLECALCIFEROL VIT D3 2,000 UNITS TAB/CAP PO SCH (09:19)
[2017-01-23] MEDS: METOPROLOL SUCCINATE XR 25 MG TAB PO SCH (09:20)
[2017-01-23] MEDS: SENNOSIDES/DOCUSATE SODIUM TAB PO SCH (09:20)
[2017-01-23] MEDS: POTASSIUM CL 10 MEQ TAB PO SCH (09:20)
[2017-01-23] MEDS: PANTOPRAZOLE SODIUM 40 MG TAB PO SCH (09:20)
[2017-01-23] MEDS: PRAMIPEXOLE 0.125 MG TAB PO SCH (09:21)
[2017-01-23] MEDS: sulfaSALAzine 500 MG TAB PO SCH (09:21)
[2017-01-23] MEDS: VENLAFAXINE XR 75 MG CAP PO SCH (09:21)
[2017-01-23 09:26] VITALS: BP 141/69; PULSE 114
--- NOTE | 2017-01-23 09:49 | HOSPPROG ---
Hospitalist Progress Note Assessment/Plan: 71 yo F with hx of chronic severe left knee pain now s/p L TKA with post op hypoxia and LLL pna # acute hypoxic respiratory failure: with o2 sats continued to drop into the mid to low 80s on RA, though patient relatively asymptomatic. Personally reviewed cxr/CTA and notable for BLL atelectasis, small bilateral pleural effusions as well as LLL infiltrate concerning for pna. Suspect she will need supplemental O2 for only weeks post dc and that a significant portion of her hypoxia related to atelectasis. # LLL pna: LLL infiltrate, pneumonitis versus atelectasis versus pna, likely aspiration in post op setting, started on levofloxacin and will plan to continue x 7 days total. # small bilateral infiltrates: post op volume overload, given lasix x1 and as mobility improves suspect this will continue to resolve on its own # atelectasis: IS, OOB to chair, ambulation # leukocytosis: in setting of above and likely related to same but has been persistent despite clinical improvement in other parameters. Should have cbc as an OP to be sure this resolves # anemia: expected post op drop in h/h, monitoring # ROSITA: continued cpap # PAD: s/p femoral pci, resumed on coumadin # dispo: will dc to snf when ok with ortho, from medical perspective ready for dc at any time Patient new to my care. Old records reviewed and summarized as above. Subjective: no acute overnight events, patient is feeling well, ready to go to rehab Objective: Vital Signs Temp Pulse Resp BP Pulse Ox 36.7 C 114 H 18 141/69 H 85 L 01/23/17 08:00 01/23/17 09:20 01/23/17 08:00 01/23/17 09:20 01/23/17 08:00 Laboratory Results 01/21/17 04:44 01/21/17 04:44 01/22/17 01/23/17 01/24/17 05:59 05:59 05:59 Intake Total 800 1200 Output Total 1600 1630 Balance -800 -430 PT 17.0 SEC (12.0-15.0) H D 01/23/17 04:20 INR 1.39 (0.83-1.16) H 01/23/17 04:20 awake alert nad anicteric mmm rrr , mildly tachy no mrg cta with bibasilar crackles soft nt nd no cce warm dry well perfused oriented appropriate ICD10 Worksheet Patient Problems: Problems Problem Status Onset Chronic Disease Mgmt/Transitional Care Acute Osteoarthritis of left knee Acute
--- NOTE | 2017-01-23 09:52 | SOAPPROG ---
SOAP Progress Note Assessment/Plan: Assessment: 01/18/17 POD#1 L TKA, pain controlled, xray fine, dressing changed yest, some drainage 01/19/17, POD#2, has been up 01/20/17, POD#3, yesterday dev tackycardia, LLL infiltrate/ pneumonia, hospitalist consult appreciated 01/21/17. POD#4, on Levaquin for pneumonia, knee looks good, has 80 deg flex, mobility inproving 01/23/17, POD#6, on Levofloxacin, medically stable, knee is doing well Plan: 01/18/17 08:25 PT/OT, multiple med problems, will need rehab stay- [facility] 01/19/17 17:23 To [facility], oxy Rx in chart, back on Coumadin 01/20/17 07:49 Abx, hold on transfer 01/21/17 16:39 Abx, if stable :rehab 01/23/17 09:49 To Rehab today, Levofloxacin,for 7 day course, oxy, on Coumadin,f/u Dr Vargas 1 week Objective: Vital Signs Temp Pulse Resp BP Pulse Ox 36.7 C 114 H 18 141/69 H 85 L 01/23/17 08:00 01/23/17 09:20 01/23/17 08:00 01/23/17 09:20 01/23/17 08:00 Laboratory Results 01/21/17 04:44 01/21/17 04:44 01/22/17 01/23/17 01/24/17 05:59 05:59 05:59 Intake Total 800 1200 Output Total 1600 1630 Balance -800 -430 PT 17.0 SEC (12.0-15.0) H D 01/23/17 04:20 INR 1.39 (0.83-1.16) H 01/23/17 04:20 ICD10 Worksheet Patient Problems: Problems Problem Status Onset Chronic Disease Mgmt/Transitional Care Acute Osteoarthritis of left knee Acute - ICD10 Problem Qualifiers (1) Osteoarthritis of left knee Qualifiers: Osteoarthritis type: O
--- NOTE | 2017-01-23 09:53 | PDIAF ---
- Diagnosis Code Status: Full Code - Medication Management Discharge Medications: Medications to Continue on Transfer Acetaminophen [Tylenol 325mg (*)] 325 mg PO DAILY PRN 12/29/16 [Last Taken 01/16] Atorvastatin Calcium [Lipitor 20 mg (*)] 20 mg PO DAILY 12/29/16 [Last Taken 12/03] Cholecalciferol Vit D3 [Vitamin D3 2000 units tab (OTC)] 2,000 units PO DAILY [Last Taken 01/16/17] Gabapentin [Neurontin 300 MG (*)] 600 mg PO HS 12/29/16 [Last Taken 01/16/17] Losartan/Hydrochlorothiazide [Losartan-Hctz 100-25 Mg Tab] 1 each PO DAILY 12/29 [Last Taken 01/16/17] Methylphenidate HCl [Ritalin 20mg (*)] 20 mg PO BID 12/29/16 [Last Taken ] Metoprolol Succinate Xr [Toprol Xl 25 mg (*)] 12.5 mg PO DAILY 12/29/16 [Last Taken 01/17/17] Omeprazole [Prilosec 20 mg] 20 mg PO DAILY 12/29/16 [Last Taken 01/16/17] Potassium Cl [Klor-Con 10 meq (RX)] 10 meq PO TID 12/29/16 [Last Taken 01/16/17] Pramipexole Di-HCl [Mirapex 0.125 mg (*)] 0.125 mg PO BID 12/29/16 [Last Taken 01/16/17] Temazepam [Restoril 15 MG (*)] 30 mg PO HSPRN PRN 12/29/16 [Last Taken 01/16/17] Venlafaxine Xr [Effexor Xr 75MG (*)] 225 mg PO DAILY 12/29/16 [Last Taken ] Warfarin Sodium [Coumadin 2.5MG (*)] 2.5 mg PO DAILY16 12/29/16 [Last Taken ] clonazePAM [Klonopin (*)] 0.25 mg PO HS 12/29/16 [Last Taken 01/16/17] sulfaSALAzine [Azulfidine 500 MG (*)] 500 mg PO TID 12/29/16 [Last Taken ] Discharge Medications: Refer to the Discharge Home Medication list for PRN reason. - Orders Oxygen: 2L, PRN O2 sats >89%, wean as able - Labs/Radiology CBC Date: 01/26/17 (fax results to Cris Salas) - Follow Up Care Current Providers and Referrals: Onel Vargas MD [Medical Doctor] - 01/31/17 2:30 pm Cris Salas PA [Primary Care Provider] -
--- NOTE | 2017-01-23 10:08 | HOSPPROG ---
Hospitalist Progress Note Assessment/Plan: 71 yo F with hx of chronic severe left knee pain now s/p L TKA with post op hypoxia and LLL pna # acute hypoxic respiratory failure: with o2 sats continued to drop into the mid to low 80s on RA, though patient relatively asymptomatic. Personally reviewed cxr/CTA and notable for BLL atelectasis, small bilateral pleural effusions as well as LLL infiltrate concerning for pna. Suspect she will need supplemental O2 for only weeks post dc and that a significant portion of her hypoxia related to atelectasis. # LLL pna: LLL infiltrate, pneumonitis versus atelectasis versus pna, likely aspiration in post op setting, started on levofloxacin and will plan to continue x 7 days total. # small bilateral infiltrates: post op volume overload, given lasix x1 and as mobility improves suspect this will continue to resolve on its own # atelectasis: IS, OOB to chair, ambulation # leukocytosis: in setting of above and likely related to same but has been persistent despite clinical improvement in other parameters. Should have cbc as an OP to be sure this resolves # anemia: expected post op drop in h/h, monitoring # ROSITA: continued cpap at hs # PAD: s/p femoral pci, resumed on coumadin # dispo: will dc to snf likely today Subjective: no acute overnight events, patient feels ready to go to snf Objective: Vital Signs Temp Pulse Resp BP Pulse Ox 36.7 C 114 H 18 141/69 H 85 L 01/23/17 08:00 01/23/17 09:20 01/23/17 08:00 01/23/17 09:20 01/23/17 08:00 Laboratory Results 01/21/17 04:44 01/21/17 04:44 01/22/17 01/23/17 01/24/17 05:59 05:59 05:59 Intake Total 800 1200 Output Total 1600 1630 Balance -800 -430 PT 17.0 SEC (12.0-15.0) H D 01/23/17 04:20 INR 1.39 (0.83-1.16) H 01/23/17 04:20 awake alert nad anicteric mmm rrr , mildly tachy no mrg cta with bibasilar crackles soft nt nd no cce warm dry well perfused oriented appropriate ICD10 Worksheet Patient Problems: Problems Problem Status Onset Chronic Disease Mgmt/Transitional Care Acute Osteoarthritis of left knee Acute
--- NOTE | 2017-01-23 10:13 | PDIAF ---
- Diagnosis Code Status: Full Code - Medication Management Discharge Medications: Medications to Continue on Transfer Acetaminophen [Tylenol 325mg (*)] 325 mg PO DAILY PRN 12/29/16 [Last Taken 01/16] Atorvastatin Calcium [Lipitor 20 mg (*)] 20 mg PO DAILY 12/29/16 [Last Taken 12/03] Cholecalciferol Vit D3 [Vitamin D3 2000 units tab (OTC)] 2,000 units PO DAILY [Last Taken 01/16/17] Gabapentin [Neurontin 300 MG (*)] 600 mg PO HS 12/29/16 [Last Taken 01/16/17] Losartan/Hydrochlorothiazide [Losartan-Hctz 100-25 Mg Tab] 1 each PO DAILY 12/29 [Last Taken 01/16/17] Methylphenidate HCl [Ritalin 20mg (*)] 20 mg PO BID 12/29/16 [Last Taken ] Metoprolol Succinate Xr [Toprol Xl 25 mg (*)] 12.5 mg PO DAILY 12/29/16 [Last Taken 01/17/17] Omeprazole [Prilosec 20 mg] 20 mg PO DAILY 12/29/16 [Last Taken 01/16/17] Potassium Cl [Klor-Con 10 meq (RX)] 10 meq PO TID 12/29/16 [Last Taken 01/16/17] Pramipexole Di-HCl [Mirapex 0.125 mg (*)] 0.125 mg PO BID 12/29/16 [Last Taken 01/16/17] Temazepam [Restoril 15 MG (*)] 30 mg PO HSPRN PRN 12/29/16 [Last Taken 01/16/17] Venlafaxine Xr [Effexor Xr 75MG (*)] 225 mg PO DAILY 12/29/16 [Last Taken ] Warfarin Sodium [Coumadin 2.5MG (*)] 2.5 mg PO DAILY16 12/29/16 [Last Taken ] clonazePAM [Klonopin (*)] 0.25 mg PO HS 12/29/16 [Last Taken 01/16/17] sulfaSALAzine [Azulfidine 500 MG (*)] 500 mg PO TID 12/29/16 [Last Taken ] levOFLOXACIN [levAQUIN (*)] 750 mg PO DAILY AT 10AM #0 tab 01/23/17 [Last Taken Unknown] oxyCODONE IR [Oxycodone Ir (*)] 5 - 10 mg PO Q3HRS PRN #0 tab 01/23/17 [Last Taken Unknown] Discharge Medications: Refer to the Discharge Home Medication list for PRN reason. - Orders Services needed: Registered Nurse, Certified Regulatory Compliance Director, Physical Therapy, Occupational Therapy Oxygen: 2L, PRN O2 sats >89%, wean as able Diet Recommendation: no restrictions on diet Diet Texture: Regular Texture Diet - Labs/Radiology CBC Date: 01/26/17 (fax results to Cris Salas) PT/INR Date: 01/24/17 (daily until INR 2-3, fax results to Cris Salas) - Follow Up Care Current Providers and Referrals: Onel Vargas MD [Medical Doctor] - 01/31/17 2:30 pm Cris Salas PA [Primary Care Provider] -
[2017-01-23 11:27] VITALS: O2SAT 93
== END 2017-01-23 12:09 | DRG 469 ==
LOC: F3N 08:47
PROVIDERS: ADMIT Orthopaedic Surgery; ATTEND Orthopaedic Surgery
PROC: 3E0U33Z Introduction of Anti-inflammatory into Joints, Percutaneous Approach (ICD-10-PCS; principal; 2017-01-17 10:45)
PROC: 0SRD0J9 Replacement of Left Knee Joint with Synthetic Substitute, Cemented, Open Approach (ICD-10-PCS; principal; 2017-01-17 10:45)
PROC: 0QP704Z Removal of Internal Fixation Device from Left Upper Femur, Open Approach (ICD-10-PCS; principal; 2017-01-17 10:45)
PROC: 0QPH04Z Removal of Internal Fixation Device from Left Tibia, Open Approach (ICD-10-PCS; principal; 2017-01-17 10:45)
DX: M17.0 Bilateral primary osteoarthritis of knee (principal); J96.01 Acute respiratory failure with hypoxia; J18.9 Pneumonia, unspecified organism; D62 Acute posthemorrhagic anemia; J69.0 Pneumonitis due to inhalation of food and vomit; G47.33 Obstructive sleep apnea (adult) (pediatric); I10 Essential (primary) hypertension; E78.5 Hyperlipidemia, unspecified; G47.00 Insomnia, unspecified; G47.421 Narcolepsy in conditions classified elsewhere with cataplexy; Z87.891 Personal history of nicotine dependence; I73.9 Peripheral vascular disease, unspecified; Z85.3 Personal history of malignant neoplasm of breast
CPT/HCPCS: 97110-GP; 97116-GP; 97162-GP; 97166-GO; 97530-GO; 97530-GP; 97535-GO; C1713; G8978-GP-CK; G8979-GP-CI; G8980-GP-CI; G8987-GO-CK; G8988-GO-CJ; J0171; J0690; J1030; J1100; J1200; J1650; J1885; J1956; J2250; J2405; J2704; J2795; J3010; Q9967

== ENCOUNTER 2017-01-30 11:05 | Emergency (ER) | payer OTHER ==
--- NOTE | 2017-01-30 11:12 | EDPHY ---
H & P Time Seen by Provider: 01/30/17 11:07 HPI/ROS: Chief complaint. Possible DVT HPI. 71-year-old female with knee replacement January 17. She was then sent to rehab after hospitalization. The last 4 days she has had increased swelling to her left lower extremity . No fever, chest pain, shortness of breath. She does have a history of DVT. She is on Coumadin but her most recent INR was low. ROS Constitutional. no fever/chills, no weakness Eyes. no problems with vision ENT. no sore throat, no nasal drainage Cardiovascular. no chest pain Respiratory. no shortness of breath, no cough Abdominal. no abdominal pain, no nausea/vomiting, no diarrhea . no problems urinating MS. Left lower extremity swelling Skin. no rash Lymph. no swollen glands Neuro. no headache, no dizziness, no difficulty walking or with speech Past Medical/Surgical History: Past medical history significant for DVT, dyslipidemia, recent knee replacement Social History: Single, nonsmoker, no alcohol Smoking Status: Former smoker Physical Exam: General Appearance: Alert well-developed female mild distress vital signs are stay Eyes: Pupils equal and round no pallor or injection. ENT, Mouth: Mucous membranes are moist. Respiratory: There are no retractions, lungs are clear to auscultation. Cardiovascular: Regular rate and rhythm. Gastrointestinal: Abdomen is soft and nontender, no masses, bowel sounds normal. Neurological: Awake and alert, sensory and motor exams grossly normal. Skin: Staple line is intact. Mild erythema and warmth to the medial aspect of the staple line. Some swelling to the lower extremity. She has Dwaine stockings on Musculoskeletal: Neck is supple nontender. Extremities symmetrical, full range of motion. Psychiatric: Patient is oriented X 3, there is no agitation. Constitutional: Initial Vital Signs Temperature (C) 36.7 C 01/30/17 11:12 Heart Rate 100 01/30/17 11:12 Respiratory Rate 18 01/30/17 11:12 Blood Pressure 131/52 H 01/30/17 11:12 O2 Sat (%) 92 01/30/17 11:12 O2 Delivery Mode Room Air Allergies/Adverse Reactions: Penicillins Allergy (Verified 01/30/17 11:12) Hives Shellfish *RETIRED-06/26/12 [Shellfish] Allergy (Verified 01/30/17 11:12) Hives CONTRAST DYE Allergy (Uncoded 06/11/16 09:22) Hives SEASONAL Allergy (Uncoded 06/11/16 09:22) Congestion Home Medications: Medication Instructions Recorded Acetaminophen [Tylenol 325mg (*)] 325 mg PO DAILY PRN 12/29/16 Atorvastatin Calcium [Lipitor 20 20 mg PO DAILY 12/29/16 mg (*)] Cholecalciferol Vit D3 [Vitamin D3 2,000 units PO DAILY 12/29/16 2000 units tab (OTC)] Gabapentin [Neurontin 300 MG (*)] 600 mg PO HS 12/29/16 Losartan/Hydrochlorothiazide 1 each PO DAILY 12/29/16 [Losartan-Hctz 100-25 mg Tab] Methylphenidate HCl [Ritalin 20mg 20 mg PO BID 12/29/16 (*)] Metoprolol Succinate Xr [Toprol Xl 12.5 mg PO DAILY 12/29/16 25 mg (*)] Omeprazole [Prilosec 20 mg] 20 mg PO DAILY 12/29/16 Potassium Cl [Klor-Con 10 meq (RX)] 10 meq PO TID 12/29/16 Pramipexole Di-HCl [Mirapex 0.125 0.125 mg PO BID 12/29/16 mg (*)] Temazepam [Restoril 15 MG (*)] 30 mg PO HSPRN PRN 12/29/16 Venlafaxine Xr [Effexor Xr 75MG 225 mg PO DAILY 12/29/16 (*)] Warfarin Sodium [Coumadin 2.5MG 2.5 mg PO DAILY16 12/29/16 (*)] clonazePAM [Klonopin (*)] 0.25 mg PO HS 12/29/16 sulfaSALAzine [Azulfidine 500 MG 500 mg PO TID 12/29/16 (*)] levOFLOXACIN [levAQUIN (*)] 750 mg PO DAILY AT 10AM #0 tab 01/23/17 oxyCODONE IR [Oxycodone Ir (*)] 5 - 10 mg PO Q3HRS PRN #0 tab 01/23/17 Cephalexin [Keflex (*)] 500 mg PO TID #21 cap 01/30/17 Medical Decision Making - Diagnostics Imaging: Imaging Impressions Extremity Venous Study 01/30/17 11:28 Impression: No evidence of deep vein thrombosis. Findings discussed with Harris Mcbride 01/30/2017 at 12:45. Ultrasound left lower extremity the reviewed by me and discussed with Dr. López is negative for DVT Procedures: IV normal saline ED Course/Re-evaluation: Re-evaluation 11:10 p.m. patient is stable. Patient and I discussed laboratory evaluation and my concern for cellulitis. We discussed treatment plan including criteria for return importance of follow- up and further evaluation. She expressed understanding and agreement Differential Diagnosis: I was concerned about DVT however no evidence for DVT. She was [place] bowl as she has a subtherapeutic INR. She has had previous DVT. There is some erythema over the knee and I think this represents cellulitis. - Data Points Laboratory Results: Laboratory Results 01/30/17 11:17 01/30/17 11:17 01/30/17 01/30/17 01/30/17 12:26 11:17 11:17 WBC RBC Hgb Hct MCV MCH MCHC RDW Plt Count MPV Neut % (Auto) Lymph % (Auto) Weakley % (Auto) Eos % (Auto) Baso % (Auto) Nucleat RBC Rel Count Absolute Neuts (auto) Absolute Lymphs (auto) Absolute Monos (auto) Absolute Eos (auto) Absolute Basos (auto) Absolute Nucleated RBC Immature Gran % Seg Neutrophils % Band Neutrophils % Lymphocytes % Monocytes % Eosinophils % Metamyelocytes % Immature Gran # Absolute Seg Neuts Absolute Band Neuts Absolute Lymphocytes Absolute Monocytes Absolute Eosinophils Absolute Metamyelocyte Platelet Estimate Stomatocytes PT 20.0 SEC H SEC (12.0-15.0) INR 1.70 H (0.83-1.16) APTT 34.4 SEC SEC (23.0-38.0) VBG Lactic Acid 1.3 mmol/L mmol/L (0.7-2.1) Sodium 140 mEq/L mEq/L (134-144) Potassium 3.7 mEq/L mEq/L (3.5-5.2) Chloride 103 mEq/L mEq/L (97-110) Carbon Dioxide 25 mEq/l mEq/l (22-31) Anion Gap 12 mEq/L mEq/L (8-16) BUN 14 mg/dL mg/dL (7-23) Creatinine 0.7 mg/dL mg/dL (0.6-1.0) Estimated GFR > 60 Glucose 91 mg/dL mg/dL (70-100) Calcium 9.2 mg/dL mg/dL (8.5-10.4) 01/30/17 11:17 WBC 14.27 10^3/uL H 10^3/uL (3.80-9.50) RBC 2.86 10^6/uL L 10^6/uL (4.18-5.33) Hgb 9.3 g/dL L g/dL (12.6-16.3) Hct 28.5 % L % (38.0-47.0) MCV 99.7 fL fL (81.5-99.8) MCH 32.5 pg pg (27.9-34.1) MCHC 32.6 g/dL g/dL (32.4-36.7) RDW 13.2 % % (11.5-15.2) Plt Count 472 10^3/uL H 10^3/uL (150-400) MPV 8.9 fL fL (8.7-11.7) Neut % (Auto) Not Reported Lymph % (Auto) Not Reported Weakley % (Auto) Not Reported Eos % (Auto) Not Reported Baso % (Auto) Not Reported Nucleat RBC Rel Count 0.0 % % (0.0-0.2) Absolute Neuts (auto) Not Reported Absolute Lymphs (auto) Not Reported Absolute Monos (auto) Not Reported Absolute Eos (auto) Not Reported Absolute Basos (auto) Not Reported Absolute Nucleated RBC 0.00 10^3/uL 10^3/uL (0-0.01) Immature Gran % Not Reported Seg Neutrophils % 80 % % Band Neutrophils % 2 % % Lymphocytes % 7 % % Monocytes % 7 % % Eosinophils % 3 % % Metamyelocytes % 1 % % Immature Gran # Not Reported Absolute Seg Neuts 11.42 10^/uL H 10^/uL (1.70-6.50) Absolute Band Neuts 0.29 10^3/uL 10^3/uL (0.00-0.70) Absolute Lymphocytes 1.00 10^3/uL 10^3/uL (1.00-3.00) Absolute Monocytes 1.00 10^3/uL H 10^3/uL (0.30-0.80) Absolute Eosinophils 0.43 10^3/uL H 10^3/uL (0.03-0.40) Absolute Metamyelocyte 0.14 10^3/mL H 10^3/mL (0.00-0.00) Platelet Estimate INCREASED H (ADEQ) Stomatocytes 1+ H PT INR APTT VBG Lactic Acid Sodium Potassium Chloride Carbon Dioxide Anion Gap BUN Creatinine Estimated GFR Glucose Calcium Departure - Departure Disposition: Home, Routine, Self-Care Clinical Impression: Cellulitis Qualifiers: Site of cellulitis of extremity: lower extremity Laterality: left Condition: Good Instructions: Cellulitis (ED) Additional Instructions: Continue regular medications. Cephalexin as antibiotic. Return for worsening symptoms. Recheck in 2 days if not improving Referrals: Patient,NotPresent [Unknown] - As per Instructions Onel Vargas MD [Medical Doctor] - 2-3 days, if not improved Prescriptions: Cephalexin [Keflex (*)] 500 mg PO TID #21 cap
[2017-01-30 11:44] LABS: ADD DIFF? YES; ADD MORPH? NO; ADD SCAN? NO; ATYPICAL LYMPHOCYTE FLAG 20 (0-99); FRAGMENT RBC FLAG 0 (0-99); HEMATOCRIT 28.5 % (38.0-47.0); HEMOGLOBIN 9.3 g/dL (12.6-16.3); LEFT SHIFT FLG 30 (0-99); LIPEMIA HEMOLYSIS FLAG 80 (0-99); MEAN CELL HEMOGLOBIN 32.5 pg (27.9-34.1); MEAN CELL HEMOGLOBIN CONCENTR. 32.6 g/dL (32.4-36.7); MEAN CELL VOLUME 99.7 fL (81.5-99.8); MEAN PLATELET VOLUME 8.9 fL (8.7-11.7); PLATELET CLUMPS FLAG 30 (0-99); PLATELET COUNT 472 10^3/uL (150-400); RED BLOOD CELL COUNT 2.86 10^6/uL (4.18-5.33); RED CELL DISTRIBUTION WIDTH 13.2 % (11.5-15.2)
[2017-01-30 11:48] LABS: INR 1.7 (0.83-1.16)
[2017-01-30 11:49] LABS: APTT 34.4 SEC (23.0-38.0)
[2017-01-30 11:51] LABS: ANION GAP 12 mEq/L (8-16); CALCIUM 9.2 mg/dL (8.5-10.4); CARBON DIOXIDE 25 mEq/l (22-31); CHLORIDE 103 mEq/L (97-110); CREATININE 0.7 mg/dL (0.6-1.0); GLOMERULAR FILTRATION RATE > 60; GLUCOSE 91 mg/dL (70-100); POTASSIUM 3.7 mEq/L (3.5-5.2); SODIUM 140 mEq/L (134-144)
[2017-01-30 12:34] LABS: PLATELET ESTIMATE INCREASED (ADEQ)
[2017-01-30 12:35] LABS: STOMATOCYTES 1+
[2017-01-30] MEDS ORDERED: CEPHALEXIN 500MG PREPACK#4 BTL TAKEHOME ONE (13:14)
[2017-01-30 14:22] VITALS: BP 119/100; PULSE 93; RESP 94; TEMP 98.2; O2SAT 18
== END 2017-01-30 14:22 | disposition home or self-care (01) ==
LOC: EDUNIT#
DX: L03.116 Cellulitis of left lower limb (principal); Z87.891 Personal history of nicotine dependence; Z79.01 Long term (current) use of anticoagulants

== ENCOUNTER → 2017-03-10 | Outpatient (CLI) | payer OTHER | LOC: FIMAGING 13:23 | PROVIDERS: ATTEND Orthopaedic Surgery | DX: M79.662 Pain in left lower leg (principal); M79.89 Other specified soft tissue disorders; Z96.659 Presence of unspecified artificial knee joint ==

== ENCOUNTER → 2017-06-25 | Outpatient (CLI) | payer OTHER | LOC: FIMAGING 15:04 | PROVIDERS: ATTEND Physician Assistant | DX: M51.36 Other intervertebral disc degeneration, lumbar region (principal); M48.06 Spinal stenosis, lumbar region ==

== ENCOUNTER → 2017-08-08 | Outpatient (CLI) | payer OTHER | LOC: FIMAGING 09:41 | PROVIDERS: ATTEND Internal Medicine Hematology & Oncology | DX: Z12.31 Encounter for screening mammogram for malignant neoplasm of breast (principal) | CPT/HCPCS: G0202 ==

== ENCOUNTER → 2017-08-12 | Outpatient (CLI) | payer OTHER | LOC: FIMAGING 10:35 | PROVIDERS: ATTEND Internal Medicine Hematology & Oncology | DX: N63.0 Unspecified lump in unspecified breast (principal); Z85.3 Personal history of malignant neoplasm of breast ==

== ENCOUNTER → 2018-02-27 | Outpatient (CLI) | payer OTHER | LOC: BHFA 13:15 | PROVIDERS: ATTEND Internal Medicine Cardiovascular Disease | DX: I73.9 Peripheral vascular disease, unspecified (principal) ==

== ENCOUNTER 2018-03-03 05:10 | Inpatient (IN) | payer OTHER ==
[2018-03-03] MEDS ORDERED: ceFAZolin 2 GM/SWFI 2 GM/20 ML SYR IVP ONE (05:26)
[2018-03-03] MEDS ORDERED: morphINE PF 0.2 MG in SYRINGE INTRATHECAL 1 SYR IT ONE (05:26)
[2018-03-03] MEDS ORDERED: GABAPENTIN 300 MG CAP PO ONE (05:26)
[2018-03-03] MEDS ORDERED: ACETAMINOPHEN 500 MG TAB PO ONE (05:26)
[2018-03-03] MEDS ORDERED: morphINE SR 15 MG TAB PO ONE (05:26)
[2018-03-03] MEDS ORDERED: LIDOCAINE 1% 2 ML INJ ID PRN (05:27)
[2018-03-03] MEDS ORDERED: LR 1,000 ML IV ONE (05:27)
[2018-03-03] MEDS ORDERED: CITRATE DEXTROSE SOLN 500 ML BAG ONE ×2 (06:37→12:50)
[2018-03-03] MEDS ORDERED: THROMBIN (BOVINE) 20,000 UNIT VIAL TP ONE ×2 (06:37→08:59)
[2018-03-03] MEDS ORDERED: CHLORHEXIDINE GLUC HIBICLENS 118 ML BTL TP ONE (06:37)
[2018-03-03] MEDS ORDERED: BUPIVACAINE 0.25% 30 ML SDV ONE (06:37)
[2018-03-03] MEDS ORDERED: BACITRACIN 50,000 UNITS/10 ML SYR IRR ONE ×2 (06:38→13:10)
[2018-03-03] MEDS ORDERED: EPINEPHrine 1 MG/ML INJ ONE (06:38)
[2018-03-03 06:47] LABS: INR 1.09 (0.83-1.16); PROTIME(PATIENT) 14.3 SEC (12.0-15.0)
--- NOTE | 2018-03-03 06:56 | PDANEPAE ---
ANE History of Present Illness Back pain ANE Past Medical History - Cardiovascular History Hx Hypertension: Yes Hx Arrhythmias: No Hx Coronary Artery / Peripheral Vascular Disease: Yes Cardiovascular History Comment: bilateral cad legs. CAD- BLOOD [id number] RX. FEMORAL STENT - Pulmonary History Hx COPD: No Hx Asthma/Reactive Airway Disease: No Hx Recent Upper Respiratory Infection: No Hx Oxygen in Use at Home: No Hx Sleep Apnea: Yes Sleep Apnea Screening Result - Last Documented: Positive Pulmonary History Comment: ROSITA- USES VPAP. DENIES SOB W 2 FLTS STAIRS. PNEUMONIA 2006 - Neurologic History Hx Cerebrovascular Accident: No Hx Seizures: No Hx Dementia: No Neurologic History Comment: NARCOLEPSY, CATAPLEXY. BULGING DISC, SPINAL STENOSIS LUMBAR. RLS - Endocrine History Hx Diabetes: No - Renal History Hx Renal Disorders: No - Liver History Hx Hepatic Disorders: No - Neurological & Psychiatric Hx Hx Neurological and Psychiatric Disorders: Yes Neurological / Psychiatric History Comment: DEPRESSION. EFFEXOR HELPS W CATAPLEXY. LOW BACK PAIN-OCC L LEG PAIN. - Cancer History Hx Cancer: Yes Cancer History Comment: L BREAST CA DX 10-03-13 - Congenital Disorder History Hx Congenital Disorders: No - GI History Hx Gastrointestinal Disorders: Yes Gastrointestinal History Comment: CROHNS DISEASE- REMISSION. GERD - Other Health History Other Health History: OA- R ANKLE AND R KNEE PAIN;. DENTAL IMPLANTS, FULL DENTURES. ANEMIA HX. OSTEOPENIA. SURG DONE FOR RETINAL L DETATCHMENT 2012 - Chronic Pain History Chronic Pain: Yes (BACK, L LEG) - Surgical History Prior Surgeries: L TOTAL KNEE 4-17;. R HAND SURG. L FEMORAL ARTERY REM CLOT IN STENT 2010, STENT PLACED BRIDGET FEM ARTERY 1999. L ACL REP '08. L RETINAL DETATCHMENT REP 2012. IMPLANT LOWER JAW DENTAL. BRIDGET STENTS PLACED FEMORAL ARTERY '. R FOOT SURG '. SPINAL INJECTIONS. L BREAST LUMPECTOMY W SENT NODE ANE Review of Systems Review of Systems: - Exercise capacity METS (RN): 4 METS ANE Patient History - Allergies Allergies/Adverse Reactions: levofloxacin [From Levaquin] Allergy (Verified 02/07/18 12:08) Hypotension Penicillins Allergy (Verified 02/07/18 12:08) Hives Shellfish *RETIRED-06/26/12 [Shellfish] Allergy (Verified 02/07/18 12:08) Hives CONTRAST DYE Allergy (Uncoded 06/11/16 09:22) Hives SEASONAL Allergy (Uncoded 06/11/16 09:22) Congestion - Home Medications Home Medications: Acetaminophen [Tylenol 325mg (*)] 325 mg PO DAILY PRN 12/29/16 [Last Taken 03/02 20:00] Atorvastatin Calcium [Lipitor 20 mg (*)] 20 mg PO DAILY 12/29/16 [Last Taken 07:00] Cholecalciferol Vit D3 [Vitamin D3 2000 units tab (OTC)] 2,000 units PO DAILY [Last Taken 02/23/18] Gabapentin [Neurontin 300 MG (*)] 600 mg PO HS 12/29/16 [Last Taken 03/02/18 20: 00 900 mg now] Losartan/Hydrochlorothiazide [Losartan-Hctz 100-25 mg Tab] 1 each PO DAILY 12/29 [Last Taken 03/02/18 07:00] Methylphenidate HCl [Ritalin 20mg (*)] 20 mg PO BID 12/29/16 [Last Taken 13:00] Metoprolol Succinate Xr [Toprol Xl 25 mg (*)] 12.5 mg PO DAILY 12/29/16 [Last Taken 03/03/18 04:00 1/2 tablet] Omeprazole [Prilosec 20 mg] 20 mg PO DAILY 12/29/16 [Last Taken 03/03/18 04:00] Potassium Cl [Klor-Con 10 meq (RX)] 10 meq PO TID 12/29/16 [Last Taken 03/02/18 20:00] Pramipexole Di-HCl [Mirapex 0.125 mg (*)] 0.125 mg PO BID 12/29/16 [Last Taken 03/02/18 13:00] Temazepam [Restoril 15 MG (*)] 30 mg PO HSPRN PRN 12/29/16 [Last Taken 03/02/18 20:00] Venlafaxine Xr [Effexor Xr 75MG (*)] 225 mg PO DAILY 12/29/16 [Last Taken 04:00] Warfarin Sodium [Coumadin 2.5MG (*)] 2.5 mg PO DAILY16 12/29/16 [Last Taken 08/03 20:00] clonazePAM [Klonopin (*)] 0.25 mg PO HS 12/29/16 [Last Taken 03/02/18 21:00] sulfaSALAzine [Azulfidine 500 MG (*)] 500 mg PO TID 12/29/16 [Last Taken 20:00] - NPO status NPO Since - Liquids (Date): 03/03/18 NPO Since - Liquids (Time): 03:30 NPO Since - Solids (Date): 03/02/18 NPO Since - Solids (Time): 22:00 - Anes Hx Anes Hx: no prior problems - Smoking Hx Smoking Status: Former smoker - Family Anes Hx Family Hx Anesthesia Complications: NONE ANE Labs/Vital Signs - Vital Signs Blood Pressure: 138/71 Heart Rate: 80 Respiratory Rate: 16 O2 Sat (%): 92 Height: 158.75 cm Weight: 68.039 kg ANE Physical Exam - Airway Neck exam: FROM Mallampati Score: Class 2 Mouth exam: dentures - Pulmonary Pulmonary: no respiratory distress - Cardiovascular Cardiovascular: regular rate and rhythym - ASA Status ASA Status: III ANE Anesthesia Plan Anesthesia Plan: general endotracheal anesthesia (Second IV) Lines/Monitors: arterial line
--- NOTE | 2018-03-03 06:57 | PDHPUP ---
History & Physical Update H&P update statement: This history and physical update is based on an assessment of the patient which was completed after admission or registration (within 24 hours), but prior to the surgery/procedure. H&P update: H&P reviewed & patient examined, no change in patient's condition since H&P completed (Consents signed and site marked. All questions answered.)
[2018-03-03] MEDS ORDERED: PROPOFOL 200 MG/20 ML VIAL ONE (07:04)
[2018-03-03] MEDS ORDERED: PROPOFOL/EMULSION 500 MG/50 ML BOTTLE IV ONE ×2 (07:04→09:59)
[2018-03-03] MEDS ORDERED: fentaNYL 100 MCG/2 ML INJ ONE (07:04)
[2018-03-03] MEDS ORDERED: REMIFENTANIL HCL 1 MG VIAL ONE ×3 (07:04→12:59)
[2018-03-03] MEDS ORDERED: ROCURONIUM 50 MG/5 ML VIAL ONE (07:14)
[2018-03-03] MEDS ORDERED: LIDOCAINE 2% 5 ML SDV ONE (07:14)
[2018-03-03] MEDS ORDERED: PHENYLEPHRINE 10 MG/ML SDV ONE ×2 (08:30→12:35)
[2018-03-03] MEDS ORDERED: DEXAMETHASONE 4 MG/ML VIAL ONE (08:33)
[2018-03-03] MEDS ORDERED: ONDANSETRON DISINTEGRATING 4 MG TAB PO PRN (11:26)
[2018-03-03] MEDS ORDERED: LACTULOSE 20 GM/30 ML UDCUP PO PRN (11:26)
[2018-03-03] MEDS ORDERED: ONDANSETRON 4 MG/2 ML VIAL IVP PRN ×2 (11:26→14:40)
[2018-03-03] MEDS ORDERED: MAGNESIUM HYDROXIDE 30 ML UDCUP PO PRN (11:26)
[2018-03-03] MEDS ORDERED: diphenhydrAMINE 25 MG CAP PO PRN (11:26)
[2018-03-03] MEDS ORDERED: BISACODYL 10 MG SUPP PR PRN (11:26)
--- NOTE | 2018-03-03 11:34 | POSTOPPROG ---
Post Op Note Date of Operation: 03/03/18 Surgeon: Lola Martins Discovery Manager: EUGENIA Martins PAC Anesthesia: GET(General Endotracheal) Pre-op Diagnosis: lumbar stenosis Post-op Diagnosis: lumbar stenosis Indication: lumbar stenosis Procedure: T12-S2 PSF, L2-L5 laminectomy, L3-S1 TLIF Inf/Abcess present in the surg proc area at time of surgery?: No EBL: 950 Drains: Yung FONSECA Addendum - Addendum .: S: low back pain O: NAD A&Ox3 MAEx4 5/5 and equal in BUE and BLE. SHELL drain serosanguineous 72 y/o female s/p T12-S2 PSF, L2-5 laminectomy and L3-S1 TLIF. -Optmize pain management, to ICU for close monitoring, precedex available if needed -PT/OT -DVT prophx: TEDs, SCDs, Lovenox okay POD1 -Repeat H:H and coags tonight -Post op xrays pending -JPx1 -Please notify NS with any change in neuro/motor exam
[2018-03-03] MEDS ORDERED: DEXMEDETOMIDINE HCL 400 MCG in NS 100 ML IV SCH (12:00)
[2018-03-03] MEDS ORDERED: ceFAZolin 1 GM VIAL ONE ×2 (12:35)
[2018-03-03] MEDS ORDERED: ALBUMIN 5% 250 ML BOTTLE IV ONE (12:35)
[2018-03-03] MEDS ORDERED: HYDROmorphONE/DILAUDID 2 MG/ML INJ ONE (12:59)
--- NOTE | 2018-03-03 14:24 | PDMN ---
Medical Necessity Medical necessity: IP surgery per [facility] cpt 32072, [id number], [id number] TLIF, PSF
[2018-03-03] MEDS ORDERED: NALOXONE HCL 0.4 MG/ML INJ IVP PRN (14:40)
[2018-03-03] MEDS ORDERED: HYDROmorphONE/DILAUDID 2 MG/ML INJ IVP PRN (14:40)
[2018-03-03] MEDS ORDERED: fentaNYL 100 MCG/2 ML INJ IVP PRN (14:40)
--- NOTE | 2018-03-03 15:28 | POSTANESTH ---
Post Anesthetic Evaluation Cardiovascular Status: Similar to Pre-Op Cond Respiratory Status: Similar to Pre-op Cond. Level of Consciousness/Mental Status: Alert and Oriented, Mildly Sleepy, Arousable Pain Control: Adequate, Prn Tx Ordered Nausea/Vomiting Control: Adequate, Prn Tx Ordered Complications Possibly Related to Anesthesia: None Noted
[2018-03-03] MEDS: ceFAZolin 2 GM/DEXTROSE 100 ML IV SCH ×2 (16:31→22:22)
[2018-03-03] MEDS: ACETAMINOPHEN 500 MG TAB PO SCH ×2 (16:38→22:22)
[2018-03-03] MEDS: NS W/ 20 KCl/L 1,000 ML IV SCH (16:53)
[2018-03-03] MEDS: oxyCODONE IR 5 MG TAB PO PRN ×2 (17:11→20:25)
--- NOTE | 2018-03-03 17:29 | GOP ---
[f rep st] OPERATIVE REPORT DATE OF OPERATION: 03/03/2018 SURGEON: Shahbaz Austin MD IT SECURITY ENGINEER: JOLIE Nance. ANESTHESIA: General. PREOPERATIVE DIAGNOSIS: 1. Severe spinal stenosis L2 through L5. 2. Low back pain. 3. Lower extremity radiculopathy and claudication. 4. Bilateral lower extremity weakness. 5. Treatment refractory to nonoperative intervention. POSTOPERATIVE DIAGNOSIS: 1. Severe spinal stenosis L2 through L5. 2. Low back pain. 3. Lower extremity radiculopathy and claudication. 4. Bilateral lower extremity weakness. 5. Treatment refractory to nonoperative intervention. PROCEDURE PERFORMED: 1. Posterior arthrodesis with approach to T12, L1, L2, L3, L4, L5, S1, and S2. 2. Posterolateral fusion with bilateral pedicle screw placement at T12, L1, L2 , L3, L4, L5, S1, and S2 from the SafetyCulturera 5.5 system with Medtronic Ballast S2 alar-iliac screws. 3. Use of intraoperative 3D Stealth navigation. 4. Use of intraoperative fluoroscopy, less than 1 hour physician time. 5. Use of neuromonitoring. 6. Use of the operating microscope. 7. Injection of preservative-free intrathecal narcotics. 8. Decompressive laminectomy with bilateral medial facetectomies, L2-L3, L3-L4 , and L4-L5 with partial left sided L5-S1 hemilaminotomy. 9. Left-sided L3-L4 transforaminal lumbar interbody fusion with an 8 x 26 mm titanium coated PEEK cage filled with morselized autograft and allograft. 10. Left-sided L4-5 transforaminal lumbar interbody fusion with a 6 x 26 mm titanium coated PEEK cage filled with morselized autograft and allograft. 11. Left-sided L5-S1 transforaminal lumbar interbody fusion with a 7 x 26 mm titanium coated PEEK cage filled with morselized autograft and allograft. 12. Posterolateral fusion bilaterally between T12 and L3 and right-sided L3 through S2 with morselized autograft and allograft. COMPLICATIONS: None. FINDINGS: per imaging SPECIMENS: None. ESTIMATED BLOOD LOSS: 900 mL of which 350 mL were given back via the Cell Saver. INDICATIONS: The patient is a 72-year-old woman who presented to my office with ongoing low back pain and lower extremity radiculopathy and claudication. She had evidence of severe spinal stenosis L2 through L5 with spondylosis from T12 through S2. After discussion of risks, benefits, and treatment alternatives , we decided to proceed forth with surgery as described above. DESCRIPTION OF PROCEDURE: Patient was brought to the operating theater and underwent general endotracheal anesthesia without complications. She had Venodynes, MIKHAIL hose and appropriate lines placed by Anesthesia. She was flipped prone on a Yung table. All bony prominences were inspected and padded. The lower lumbar region was prepped and draped in the usual sterile surgical fashion. A time-out was completed per protocol. The patient received antibiotics within 1-hour of incision. Using lateral fluoroscopy and a spinal needle, we picked our entry point to the T12 through S2 levels. This was marked in the midline and incision infiltrated with Marcaine with epinephrine. The incision was taken down with the scalpel blade and using monopolar, taken down the midline to the lumbodorsal fascia. A subperiosteal dissection was carried out to the transverse processes of T12 through S1 and exposed the S2. Care was taken to preserve the T11-T12 facet joint. Deep retractors placed to maintain our exposure. We confirmed our level using lateral fluoroscopy. We attached the 3D Stealth navigation clamp to the spinous process of L5 and completed a 3D Stealth navigation spin. Using 3D Stealth navigation we placed the pest control operator holes for all the pedicle screws from T12 through S2. All holes were manually palpated with no evidence of any cortical breaches. We then tapped and placed 5.5 x 50 mm screw on the left at T12, 6.5 x 50 mm screw on the right at T12, bilaterally at L1, 6.5 x 55 mm screws bilaterally at L2, 6.5 x 50 mm screws bilaterally at L3, 6.5 x 50 mm screw on the left at L4, 6.5 x 50 mm screw on the right L4, 6.5 x 45 mm screws bilaterally at L5 and a left-sided S1, 6.5 x 40 mm screw on the right S1, and 7.5 x 80 mm screws bilaterally in S2 crossing the SI joint into the pelvis. The S2 screws were Medtronic Ballast screws. A 3D navigation spin demonstrated excellent placement of the hardware. At this point, using a combination of the bur tip on the drill bit, Kerrison punches and Leksell rongeur, we completed a decompressive laminectomy with bilateral medial facetectomies, L2-L3, L3-L4, L4-L5 and left-sided hemilaminotomy at L5-S1. We completed an aggressive facetectomy on the left side at L3-L4, L4-L5 and L5-S1. The microscope was brought into field to assist with microscopic dissection and to maintain illumination and magnification. We completed a left-sided L3-L4 diskectomy and prepared the cartilaginous endplates. We measured the interbody space and placed an 8 x 26 mm titanium coated PEEK cage filled with morselized autograft and allograft anteriorly and toward the midline. We packed additional morcellized morselized autograft into the disk space for the interbody fusion. We moved to L4-5 and completed a left-sided L4-5 diskectomy and prepared the cartilaginous endplates. We measured interbody space and placed a 6 x 26 mm titanium coated PEEK cage filled with morselized autograft and allograft anteriorly and toward the midline. We packed additional morcellized autograft into the disk space for the interbody fusion. We moved to L5-S1 and completed a left-sided L5-S1 diskectomy and prepared the cartilaginous endplates. We measured the interbody space and placed a 7 x 26 mm titanium coated PEEK cage filled with morselized autograft and allograft anteriorly and toward the midline. We packed additional morcellized autograft in the disk space for the interbody fusion. We decorticated the bone bilaterally between T12 and L3 and on the right side between L2 and S2. The wound was irrigated copiously with bacitracin irrigation. We placed 2-rods in the heads of the screws between T12 and S2 and secured them down with cap screws, which were tightened per the immigration paralegal's setting. We placed morselized autograft and allograft bilaterally between T12 and L3 and right-sided L3 through S2 for the posterolateral fusion. We injected preservative-free intrathecal narcotics. Two drains were left in the subfascial space and the wound then closed in multiple layers including Vicryl sutures for the deep layers and Dermabond for the skin. The patient's wounds were dressed sterilely. She was flipped supine onto the transfer cart, where she was awakened, extubated and taken to the recovery room in stable condition. There were no complications and no changes on neuromonitoring throughout the procedure. /[id number]/MODL MTDD
[2018-03-03] MEDS: SENNOSIDES/DOCUSATE SODIUM TAB PO SCH (20:25)
[2018-03-03] MEDS ORDERED: FAMOTIDINE 20 MG TAB PO SCH (21:00)
[2018-03-03] MEDS ORDERED: clonazePAM 1 MG TAB PO PRN (22:20)
[2018-03-03] MEDS ORDERED: TEMAZEPAM 15 MG CAP PO SCH (22:30)
[2018-03-04] MEDS: oxyCODONE IR 5 MG TAB PO PRN ×5 (01:51→22:27)
[2018-03-04 06:05] LABS: INR 1.13 (0.83-1.16); PROTIME(PATIENT) 14.7 SEC (12.0-15.0)
[2018-03-04] MEDS: ACETAMINOPHEN 500 MG TAB PO SCH ×3 (07:20→21:38)
[2018-03-04] MEDS: NS W/ 20 KCl/L 1,000 ML IV SCH (07:21)
[2018-03-04] MEDS: ENOXAPARIN 40 MG/0.4 ML SYR SC SCH (07:38)
--- NOTE | 2018-03-04 07:45 | NEUSURGPN ---
Date of Surgery: 03/03/18 Post Op Day: 1 Assessment/Plan: Assessment: 72 y/o female s/p T12-S2 PSF, L2-5 laminectomy and L3-S1 TLIF POD #1 Plan: -Optmize pain management, ICU for close monitoring, precedex available if needed -JPs productive with 140 and 180 -CDI -pt with increase HR and low blood pressure/dizzy, H/H 8/24-pt had nearly 1000cc blood loss-ordered 1 unit of PRBC -PT/OT -DVT prophx: TEDs, SCDs, Lovenox held til tomorrow to start -Repeat labs in am -Post op xrays pending -Please notify NS with any change in neuro/motor exam Subjective: Awake and alert. NAD. Eating/drinking and voiding. No f/c/n/v/d. No lynn/neck/ chest/abd or gu complaints. Objective: NAD A&Ox3 MAEx4 5/5 and equal in BUE and BLE AAO x 3, PERRLA/EOMI no droop CN 2-12 grossly intact SHELL drains productive Neuro Check Frequency: per routine Urinary Catheter in Place: Yes Urinary Catheter Indication: Other (Use Comment) (to be removed today) Catheter Insertion Date: 03/03/18 - Physician Discussed Patient with : Norman Neurosurgery Physical Exam - Vitals, I&O, Labs I and O 03/03/18 03/04/18 03/05/18 05:59 05:59 05:59 Intake Total 5419 Output Total 2090 Balance 3329 Weight 69 kg Intake: Oral (ml) 550 IV Intake (ml) 3519 IV Infused (ml) 1350 NS W/ 20 KCl/L 1,000 ml @ 1350 75 mls/hr IV CONT MOHIT Rx #:[id number] Output: Urine (ml) 1000 Catheter 1000 Estimated Blood Loss (ml) 900 SHELL Drain Output (ml) 190 #1 Left Back 80 #2 Right Back 110 Vital Signs Temp Pulse Resp BP Pulse Ox 36.6 C 99 18 96/51 L 94 03/03/18 20:00 03/04/18 06:00 03/04/18 06:00 03/04/18 06:00 03/04/18 06:00 Laboratory Results 03/04/18 05:30 03/04/18 05:30 ICD10 Worksheet Patient Problems: Problems Problem Status Onset Chronic Disease Mgmt/Transitional Care Acute Osteoarthritis of left knee Acute
[2018-03-04] MEDS ORDERED: ACETAMINOPHEN 325 MG TAB PO PRN (07:49)
[2018-03-04] MEDS: LOSARTAN/HCTZ 50/12.5 1 TAB PO SCH (08:34)
[2018-03-04] MEDS: METOPROLOL SUCCINATE XR 25 MG TAB PO SCH (08:35)
[2018-03-04] MEDS: PANTOPRAZOLE SODIUM 40 MG TAB PO SCH (08:43)
[2018-03-04] MEDS: SENNOSIDES/DOCUSATE SODIUM TAB PO SCH ×2 (08:43→21:38)
[2018-03-04] MEDS: ATORVASTATIN CALCIUM 20 MG TAB PO SCH (08:43)
[2018-03-04] MEDS: VENLAFAXINE XR 150 MG CAP PO SCH (08:43)
[2018-03-04] MEDS: POTASSIUM CL 10 MEQ TAB PO SCH ×3 (08:43→21:37)
[2018-03-04] MEDS: sulfaSALAzine 500 MG TAB PO SCH ×3 (09:24→21:37)
[2018-03-04] MEDS: PRAMIPEXOLE 0.125 MG TAB PO SCH ×2 (09:24→21:37)
[2018-03-04] MEDS ORDERED: ALBUMIN 5% 500 ML IV ONE (11:00)
[2018-03-04] MEDS: traMADol 50 MG TAB PO PRN ×2 (12:33→22:26)
--- NOTE | 2018-03-04 18:23 | GHP ---
[f rep st] HISTORY AND PHYSICAL DATE OF ADMISSION: 03/03/2018 REFERRING PHYSICIAN: Shahbaz Austin MD REASON FOR REFERRAL: Evaluation and management of hypertension, obstructive sleep apnea, and narcole psy with cataplexy. HISTORY: The patient is a 72-year-old woman with a history of back pain dating to about 2011. She h as had injections, but they have only given her partial relief. She was referred to Dr. Austin, who recommended back surgery, which was performed yesterday. The patient underwent a T12-S2 posterior fu annemarie with an L2-5 laminectomy and an L3-S1 TLIF on 03/03. Postoperatively, she has had some hypotens ion with her systolic blood pressure in the upper 70s-mid 90s (normally normotensive on antihypertens pierre medications). She was mildly symptomatic with this with some dizziness. This has improved a bit with a unit of blood and some albumin earlier, although her blood pressure is still a bit on the low side despite holding her antihypertensive medications. She reports her back pain is fairly good, we ll controlled. She had some urinary retention, but that has improved. She had an episode of cataple xy yesterday because her venlafaxine was held, but she has not had any more episodes today. PAST MEDICAL HISTORY: 1. Breast cancer diagnosed in 2012. Status post lumpectomy with node biopsy and radiation. 2. Obstructive sleep apnea. This is severe with baseline AHI of 29.8 events/hour. She is on ASV du e to treatment emergent central sleep apnea. She uses this nightly and has her machine here in the h ospital. 3. 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 Her cataplexy is fairly wel l controlled with venlafaxine, and her daytime sleepiness is addressed with Ritalin. 4. Insomnia. This has been treated with temazepam. 5. Restless legs. This has been treated with gabapentin and clonazepam. 6. Crohn disease. MEDICATIONS: At the time of admission include azulfidine, Klonopin, Coumadin, Restoril, Neurontin, L ipitor, Prilosec, Toprol, Mirapex, Ritalin, losartan, Ultram, and venlafaxine. ALLERGIES: Levofloxacin, penicillin, and shellfish. SOCIAL HISTORY: The patient has a 00-lwww-xbcro history smoker, quit 6 years ago. She drinks alcoho l about 1 beverage daily. FAMILY HISTORY: Unremarkable. REVIEW OF SYSTEMS: A 10-point review of systems adds nothing to the history of present illness. PHYSICAL EXAMINATION: GENERAL: The patient is awake, alert, and in no acute distress. VITAL SIGNS: Blood pressure is 106/45 with a heart rate of 109. She is currently receiving her 2nd unit of bloo d. Her oxygen saturations are 92% on 4 L. She is afebrile. HEENT: Normocephalic and atraumatic. No icterus. NECK: No JVD. Trachea is midline. CHEST: Clear to auscultation. CARDIAC: Regular r ate and rhythm without murmur. ABDOMEN: Soft, nontender. Bowel sounds are present. EXTREMITIES: No clubbing, cyanosis, or edema. NEURO: The patient is awake and alert. She has no gross motor or sensory deficits. LABORATORY: Hemoglobin is 8.0 (prior to the 2 units of packed red blood cells). White blood count i s 10.0, platelet count is 161. INR is 1.1. A chemistry group is remarkable for creatinine of 1.3. ASSESSMENT: 1. Status post lumbar spine surgery. The patient is doing well, with fairly good pain control. She had some difficulty initiating urination after her So catheter was removed, but this has resolved . 2. Obstructive sleep apnea. The patient has treatment emergent central sleep apnea as well. This i s effectively treated with ASV. The patient has her machine here with her for use tonight. 3. Narcolepsy with cataplexy. This has been well-treated with venlafaxine. She had an episode yest erday when her venlafaxine was held, but she received it this morning and has not had any episodes to day. 4. Restless legs. 5. Insomnia. The patient is a bit worried that she may have difficulty sleeping tonight. 6. Hypotension. This has improved a bit with her 2nd unit of packed red cells as well as albumin. It is likely due to blood loss and vasoplegia due to anesthesia. She has not required any pressors a nd has fairly good urine output and no lightheadedness. 7. Acute kidney injury. Patient's creatinine is up slightly from her baseline. However, she does h ave fairly good urine output, with her bladder scan just prior to urination showing over 300 cc. RECOMMENDATIONS: 1. Continue ASV use at night. Supplemental oxygen could be added as needed to maintain oxygen satur ations, if she has hypoxemia related to her pain medications and atelectasis. 2. Continue venlafaxine. 3. Resume temazepam and clonazepam. 4. Follow blood pressure here in the ICU. If her blood pressure drops further, consider NICOM test to determine if she is still fluid responsive. 5. Recheck hemoglobin and creatinine in the morning. /[id number]/MODL
[2018-03-04] MEDS ORDERED: clonazePAM 0.5 MG TAB PO SCH ×2 (21:00)
[2018-03-04] MEDS: GABAPENTIN 300 MG CAP PO SCH (21:37)
[2018-03-04] MEDS: clonazePAM 1 MG TAB PO SCH (21:37)
[2018-03-04] MEDS: TEMAZEPAM 15 MG CAP PO PRN (21:37)
[2018-03-05] MEDS: ACETAMINOPHEN 500 MG TAB PO SCH ×3 (07:27→22:12)
[2018-03-05] MEDS: sulfaSALAzine 500 MG TAB PO SCH ×3 (08:20→21:36)
[2018-03-05] MEDS: VENLAFAXINE XR 150 MG CAP PO SCH (08:20)
[2018-03-05] MEDS: PANTOPRAZOLE SODIUM 40 MG TAB PO SCH (08:21)
[2018-03-05] MEDS: LOSARTAN/HCTZ 50/12.5 1 TAB PO SCH (08:21)
[2018-03-05] MEDS: METOPROLOL SUCCINATE XR 25 MG TAB PO SCH (08:21)
[2018-03-05] MEDS: ATORVASTATIN CALCIUM 20 MG TAB PO SCH (08:23)
[2018-03-05] MEDS: SENNOSIDES/DOCUSATE SODIUM TAB PO SCH ×2 (08:23→19:52)
[2018-03-05] MEDS: PRAMIPEXOLE 0.125 MG TAB PO SCH ×2 (08:23→19:52)
[2018-03-05] MEDS: traMADol 50 MG TAB PO PRN ×2 (08:23→19:52)
[2018-03-05] MEDS: POTASSIUM CL 10 MEQ TAB PO SCH ×3 (08:24→21:36)
[2018-03-05] MEDS: ENOXAPARIN 40 MG/0.4 ML SYR SC SCH (08:25)
--- NOTE | 2018-03-05 09:17 | NEUSURGPN ---
Date of Surgery: 03/03/18 Post Op Day: 2 Assessment/Plan: Assessment: 72 y/o female s/p T12-S2 PSF, L2-5 laminectomy and L3-S1 TLIF POD #2 Plan: -Optimize pain management, ICU for close monitoring, not on precedex. Pain controlled with current pain meds -JPs productive with 150 and 280-H/H 08/15 -CDI -pt better this am. Blood pressures doing well. Not symptomatic -PT/OT-CPM -sitting in chair -DVT prophx: TEDs, SCDs, Lovenox held (to start today) -d/w Dr Austin-ok to remove least productive SHELL and ok to start lovenox-given -Repeat labs in am -Post op xrays pending -Please notify NS with any change in neuro/motor exam Subjective: No new complaints or concerns. No f/c/n/v/d. No lynn/neck/chest/abd or gu complaints. Objective: NAD A&Ox3 MAEx4 5/5 and equal in BUE and BLE AAO x 3, PERRLA/EOMI no droop CN 2-12 grossly intact SHELL drains productive CDI Neuro Check Frequency: per routine Urinary Catheter in Place: No Catheter Insertion Date: 03/03/18 - Physician Discussed Patient with : Norman Neurosurgery Physical Exam - Vitals, I&O, Labs I and O 03/04/18 03/05/18 03/06/18 05:59 05:59 05:59 Intake Total 5419 2550 Output Total 2090 1480 Balance 3329 1070 Weight 69 kg 68.4 kg Intake: Oral (ml) 550 1100 IV Intake (ml) 3519 IV Infused (ml) 1350 750 Albumin 5% 500 ml @ As 500 Directed IV ONCE ONE Rx#: [id number] NS W/ 20 KCl/L 1,000 ml @ 1350 250 75 mls/hr IV CONT MOHIT Rx #:[id number] Packed Red Blood Cells ( 700 ml) Output: Urine (ml) 1000 1050 Catheter 1000 Toilet 1050 Estimated Blood Loss (ml) 900 SHELL Drain Output (ml) 190 430 #1 Left Back 80 150 #2 Right Back 110 280 Other: Intake Quantity Yes Sufficient Number of Voids Toilet 1 Vital Signs Temp Pulse Resp BP Pulse Ox 36.6 C 110 H 19 116/94 H 90 L 03/05/18 08:00 03/05/18 08:00 03/05/18 08:00 03/05/18 08:00 03/05/18 08:00 Laboratory Results 03/05/18 08:30 03/05/18 06:45 ICD10 Worksheet Patient Problems: Problems Problem Status Onset Chronic Disease Mgmt/Transitional Care Acute Osteoarthritis of left knee Acute
--- NOTE | 2018-03-05 09:30 | ASMTCMCOM ---
CM Note CM Note Notes: Patient admitted for T12-S2 posterior fusion with L2-5 laminectomy and L3-S1 TLIF. She is recovering well and working with PT/OT who have recommended short term rehab upon discharge. I spoke with patient, she would like to go to [facility]. She was there last year following a TKA. I sent a referral to and anticipate they will accept her. Her daughter Iliana in [place] is MDPOA. Case Management will follow. Date Signed: 03/05/2018 09:30 AM Electronically Signed By:Brianna Donnelly RN
[2018-03-05] MEDS: oxyCODONE IR 5 MG TAB PO PRN (11:42)
[2018-03-05] MEDS: clonazePAM 1 MG TAB PO SCH (19:52)
[2018-03-05] MEDS: GABAPENTIN 300 MG CAP PO SCH (19:53)
[2018-03-05] MEDS: TEMAZEPAM 15 MG CAP PO PRN (21:36)
[2018-03-06] MEDS: oxyCODONE IR 5 MG TAB PO PRN ×4 (03:09→21:40)
[2018-03-06] MEDS: METHOCARBAMOL 750 MG TAB PO PRN ×2 (03:10→21:41)
[2018-03-06] MEDS: ACETAMINOPHEN 500 MG TAB PO SCH ×3 (05:52→23:24)
--- NOTE | 2018-03-06 08:18 | NEUSURGPN ---
Date of Surgery: 03/03/18 Post Op Day: 3 Assessment/Plan: Assessment: 72 y/o female s/p T12-S2 PSF, L2-5 laminectomy and L3-S1 TLIF POD #3 Plan: -Pain controlled with current pain meds -SHELL 105ml overnight, will dc this am -Ok to shower once SHELL removed -H/H 06/11 this am Not symptomatic -PT/OT-CPM -Assisted patient to chair -DVT prophx: TEDs, SCDs, Lovenox -Patient seen by and discussed with Dr Austin -Post op xrays pending -Case management to eval dispo options, possible dc to rehab tomorrow -Please notify NS with any change in neuro/motor exam Subjective: No new complaints Objective: A&Ox3 MAEx4 5/ and equal in BUE and BLE AAO x 3, PERRLA/EOMI no droop CN 2-12 grossly intact SHELL patent Dressing CDI Neuro Check Frequency: per routine Urinary Catheter in Place: No Catheter Insertion Date: 03/03/18 - Physician Discussed Patient with : Norman Patient Seen by : Norman Neurosurgery Physical Exam - Vitals, I&O, Labs I and O 03/05/18 03/06/18 03/07/18 05:59 05:59 05:59 Intake Total 2550 1640 Output Total 1480 855 Balance 1070 785 Weight 68.4 kg Intake: Oral (ml) 1100 1640 IV Infused (ml) 750 Albumin 5% 500 ml @ As 500 Directed IV ONCE ONE Rx#: [id number] NS W/ 20 KCl/L 1,000 ml @ 250 75 mls/hr IV CONT MOHIT Rx #:[id number] Packed Red Blood Cells ( 700 ml) Output: Urine (ml) 1050 750 Catheter 750 Toilet 1050 SHELL Drain Output (ml) 430 105 #1 Left Back 150 #2 Right Back 280 105 Other: Intake Quantity Yes Sufficient Number of Voids Incontinence 1 Toilet 1 2 Bladder Scan Volume (ml) Incontinence 811 Vital Signs Temp Pulse Resp BP Pulse Ox 36.9 C 110 H 18 91/54 L 91 L 03/06/18 07:50 03/06/18 07:50 03/06/18 07:50 03/06/18 07:50 03/06/18 07:50 Laboratory Results 03/06/18 05:07 03/06/18 05:07 ICD10 Worksheet Patient Problems: Problems Problem Status Onset Chronic Disease Mgmt/Transitional Care Acute Osteoarthritis of left knee Acute
[2018-03-06] MEDS: ATORVASTATIN CALCIUM 20 MG TAB PO SCH (08:34)
[2018-03-06] MEDS: traMADol 50 MG TAB PO PRN (08:34)
[2018-03-06] MEDS: POTASSIUM CL 10 MEQ TAB PO SCH ×3 (08:34→21:41)
[2018-03-06] MEDS: ENOXAPARIN 40 MG/0.4 ML SYR SC SCH (08:35)
[2018-03-06] MEDS: PANTOPRAZOLE SODIUM 40 MG TAB PO SCH (08:35)
[2018-03-06] MEDS: VENLAFAXINE XR 150 MG CAP PO SCH (08:35)
[2018-03-06] MEDS: POLYETHYLENE GLYCOL 3350 17 GM PKT PO PRN (08:35)
[2018-03-06] MEDS: SENNOSIDES/DOCUSATE SODIUM TAB PO SCH ×2 (08:35→21:41)
[2018-03-06] MEDS: LOSARTAN/HCTZ 50/12.5 1 TAB PO SCH ×2 (10:36→11:48)
[2018-03-06] MEDS: sulfaSALAzine 500 MG TAB PO SCH ×3 (11:18→21:40)
[2018-03-06] MEDS: PRAMIPEXOLE 0.125 MG TAB PO SCH ×2 (11:18→21:40)
[2018-03-06] MEDS: METOPROLOL SUCCINATE XR 25 MG TAB PO SCH (11:18)
[2018-03-06] MEDS: clonazePAM 1 MG TAB PO SCH (21:40)
[2018-03-06] MEDS: GABAPENTIN 300 MG CAP PO SCH (21:40)
[2018-03-06] MEDS: TEMAZEPAM 15 MG CAP PO PRN (21:46)
[2018-03-07] MEDS: oxyCODONE IR 5 MG TAB PO PRN ×4 (03:45→17:28)
[2018-03-07] MEDS: ACETAMINOPHEN 500 MG TAB PO SCH ×3 (06:42→22:32)
[2018-03-07] MEDS: ATORVASTATIN CALCIUM 20 MG TAB PO SCH (08:27)
[2018-03-07] MEDS: LOSARTAN/HCTZ 50/12.5 1 TAB PO SCH (08:27)
[2018-03-07] MEDS: ENOXAPARIN 40 MG/0.4 ML SYR SC SCH (08:27)
[2018-03-07] MEDS: PANTOPRAZOLE SODIUM 40 MG TAB PO SCH (08:28)
[2018-03-07] MEDS: POTASSIUM CL 10 MEQ TAB PO SCH ×3 (08:28→22:32)
[2018-03-07] MEDS: PRAMIPEXOLE 0.125 MG TAB PO SCH ×2 (08:28→20:51)
[2018-03-07] MEDS: SENNOSIDES/DOCUSATE SODIUM TAB PO SCH ×2 (08:28→20:51)
[2018-03-07] MEDS: sulfaSALAzine 500 MG TAB PO SCH ×3 (08:28→22:33)
[2018-03-07] MEDS: VENLAFAXINE XR 150 MG CAP PO SCH (08:28)
[2018-03-07] MEDS: METOPROLOL SUCCINATE XR 25 MG TAB PO SCH (08:28)
[2018-03-07] MEDS: METHOCARBAMOL 750 MG TAB PO PRN ×3 (08:30→22:33)
--- NOTE | 2018-03-07 10:13 | NEUSURGPN ---
Assessment/Plan: Assessment: 72 y/o female s/p T12-S2 PSF, L2-5 laminectomy and L3-S1 TLIF POD #4 Plan: -Pain controlled with current pain meds -PT/OT-CPM -DVT prophx: TEDs, SCDs, Lovenox -Discussed with Dr Austin -Post op xrays pending -Case management to eval dispo options, possible dc to rehab tomorrow, if pain improved -Please notify NS with any change in neuro/motor exam Subjective: right groin pain. Denies any new weakness. Objective: NAD A&Ox3 MAEx4 5/ and equal in BUE and BLE. Incision c/d/i Catheter Insertion Date: 03/03/18 - Physician Discussed Patient with : Norman Neurosurgery Physical Exam - Vitals, I&O, Labs I and O 03/06/18 03/07/18 03/08/18 05:59 05:59 05:59 Intake Total 1640 500 Output Total 855 505 650 Balance 785 -5 -650 Intake: Oral (ml) 1640 500 Output: Urine (ml) 750 500 650 Bedside Commode 500 650 Catheter 750 SHELL Drain Output (ml) 105 5 #2 Right Back 105 5 Other: Number of Voids Bedside Commode 1 1 Incontinence 1 1 Toilet 2 Bladder Scan Volume (ml) Incontinence 811 Vital Signs Temp Pulse Resp BP Pulse Ox 37.8 C 106 H 16 104/58 L 93 03/07/18 07:43 03/07/18 07:43 03/07/18 07:43 03/07/18 07:43 03/07/18 07:43 Laboratory Results 03/06/18 05:07 03/06/18 05:07 ICD10 Worksheet Patient Problems: Problems Problem Status Onset Chronic Disease Mgmt/Transitional Care Acute Osteoarthritis of left knee Acute
[2018-03-07] MEDS: traMADol 50 MG TAB PO PRN ×3 (11:26→22:35)
--- NOTE | 2018-03-07 14:19 | ASMTCMCOM ---
CM Note CM Note Notes: We have received notification via [facility] that [facility] is able to accept patient when medically stable. CM will continue to follow. Current D/C Plan: [facility] Date Signed: 03/07/2018 02:19 PM Electronically Signed By:Jo Dowd RN
[2018-03-07] MEDS: clonazePAM 1 MG TAB PO SCH (20:48)
[2018-03-07] MEDS: GABAPENTIN 300 MG CAP PO SCH (20:50)
[2018-03-08] MEDS: METHOCARBAMOL 750 MG TAB PO PRN ×3 (05:45→18:00)
--- NOTE | 2018-03-08 07:14 | NEUSURGPN ---
Date of Surgery: 03/03/18 Post Op Day: 5 Assessment/Plan: Assessment: 72 y/o female s/p T12-S2 PSF, L2-5 laminectomy and L3-S1 TLIF POD #5 Plan: -Pain controlled with current pain meds -PT/OT-CPM -DVT prophx: TEDs, SCDs, Lovenox -Discussed with Dr Austin -Post op xrays reviewed and look fine -pt with some diffuse abd distension. She states that she is passing gas but no BM-RN to work with pt regarding BM prior to dc to rehab -Case management to eval dispo options, possible dc to rehab today if pain stable and BM -Please notify NS with any change in neuro/motor exam -pt understands and agrees Subjective: Awake and alert. NAD. Eating/drinking and voiding. Passing gas no BM as of yet. No f/c/n/v/d. Temp normal after IS use Objective: NAD A&Ox3 PERRLA/EOMI abd soft and NT no droop ROMAN x 4 5/5 and equal in BUE and BLE. Incision c/d/i Neuro Check Frequency: per routine Urinary Catheter in Place: No Catheter Insertion Date: 03/03/18 - Physician Discussed Patient with : Norman Neurosurgery Physical Exam - Vitals, I&O, Labs I and O 03/07/18 03/08/18 03/09/18 05:59 05:59 05:59 Intake Total 500 400 Output Total 505 1300 Balance -5 -900 Intake: Oral (ml) 500 400 Output: Urine (ml) 500 1300 Bedside Commode 500 650 Toilet 650 SHELL Drain Output (ml) 5 #2 Right Back 5 Other: Number of Voids Bedside Commode 1 1 Incontinence 1 Toilet 1 Vital Signs Temp Pulse Resp BP Pulse Ox 37.2 C 89 16 109/55 L 91 L 03/08/18 04:00 03/08/18 04:00 03/08/18 04:00 03/08/18 04:00 03/08/18 04:00 Laboratory Results 03/06/18 05:07 03/06/18 05:07 ICD10 Worksheet Patient Problems: Problems Problem Status Onset Chronic Disease Mgmt/Transitional Care Acute Osteoarthritis of left knee Acute
[2018-03-08] MEDS: traMADol 50 MG TAB PO PRN ×3 (07:38→23:09)
[2018-03-08] MEDS: sulfaSALAzine 500 MG TAB PO SCH ×3 (07:38→22:46)
[2018-03-08] MEDS: METOPROLOL SUCCINATE XR 25 MG TAB PO SCH (07:39)
[2018-03-08] MEDS: LOSARTAN/HCTZ 50/12.5 1 TAB PO SCH (07:41)
[2018-03-08] MEDS: ATORVASTATIN CALCIUM 20 MG TAB PO SCH (07:42)
[2018-03-08] MEDS: POTASSIUM CL 10 MEQ TAB PO SCH ×3 (07:42→22:46)
[2018-03-08] MEDS: VENLAFAXINE XR 150 MG CAP PO SCH (07:42)
[2018-03-08] MEDS: PRAMIPEXOLE 0.125 MG TAB PO SCH ×2 (07:42→22:44)
[2018-03-08] MEDS: SENNOSIDES/DOCUSATE SODIUM TAB PO SCH ×2 (07:43→22:44)
[2018-03-08] MEDS: ACETAMINOPHEN 500 MG TAB PO SCH ×3 (07:43→22:45)
[2018-03-08] MEDS: PANTOPRAZOLE SODIUM 40 MG TAB PO SCH (07:44)
[2018-03-08] MEDS: ENOXAPARIN 40 MG/0.4 ML SYR SC SCH (07:44)
[2018-03-08] MEDS: POLYETHYLENE GLYCOL 3350 17 GM PKT PO PRN (07:45)
[2018-03-08] MEDS: oxyCODONE IR 5 MG TAB PO PRN ×3 (09:33→18:00)
[2018-03-08] MEDS ORDERED: MAGNESIUM CITRATE 300 ML BOTTLE PO ONE (13:45)
--- NOTE | 2018-03-08 15:28 | ASMTCMCOM ---
CM Note CM Note Notes: This morning pt dghtr Ankita requests pt go to inpatient rehab/snf closer to [place] where she lives. Spoke with pt who considers being close to [facility] would be good since Ankita has pt cat and dog and possibly they can visit pt. Referrals sent to [facility] acute rehab and several [place] SNFs. Ankita then reports [place] is too far but [place] is ok. Thus far, [facility] reports they cannot accept pt due to her ASV sleep machine. [facility] in [place] can accept, several referrals pending. Date Signed: 03/08/2018 03:27 PM Electronically Signed By:GAUDENCIO Sutton
[2018-03-08] MEDS: clonazePAM 1 MG TAB PO SCH (22:43)
[2018-03-08] MEDS: GABAPENTIN 300 MG CAP PO SCH (22:43)
[2018-03-08] MEDS: TEMAZEPAM 15 MG CAP PO PRN (23:09)
[2018-03-09] MEDS: METHOCARBAMOL 500 MG TAB PO PRN ×2 (06:13→15:37)
[2018-03-09] MEDS: ACETAMINOPHEN 500 MG TAB PO SCH ×2 (07:57→13:20)
[2018-03-09] MEDS: PRAMIPEXOLE 0.125 MG TAB PO SCH (08:16)
[2018-03-09] MEDS: oxyCODONE IR 5 MG TAB PO PRN ×2 (08:16→12:15)
[2018-03-09] MEDS: VENLAFAXINE XR 150 MG CAP PO SCH (08:19)
[2018-03-09] MEDS: SENNOSIDES/DOCUSATE SODIUM TAB PO SCH (08:22)
[2018-03-09] MEDS: ENOXAPARIN 40 MG/0.4 ML SYR SC SCH (08:22)
[2018-03-09] MEDS: ATORVASTATIN CALCIUM 20 MG TAB PO SCH (08:22)
[2018-03-09] MEDS: PANTOPRAZOLE SODIUM 40 MG TAB PO SCH (08:22)
[2018-03-09] MEDS: METOPROLOL SUCCINATE XR 25 MG TAB PO SCH (08:23)
[2018-03-09] MEDS: sulfaSALAzine 500 MG TAB PO SCH ×2 (08:23→15:37)
[2018-03-09] MEDS: POTASSIUM CL 10 MEQ TAB PO SCH ×2 (08:23→15:36)
[2018-03-09] MEDS: LOSARTAN/HCTZ 50/12.5 1 TAB PO SCH (08:24)
--- NOTE | 2018-03-09 09:58 | NEUSURGPN ---
Assessment/Plan: Assessment: 72 y/o female s/p T12-S2 PSF, L2-5 laminectomy and L3-S1 TLIF POD #6 Plan: -Pain controlled with current pain meds -PT/OT-CPM -DVT prophx: TEDs, SCDs, Lovenox -Discussed with Dr Austin -Post op xrays reviewed and look fine -pt with some diffuse abd distension-> improved, had BM -Case management to eval dispo options, DC to rehab today -Please notify NS with any change in neuro/motor exam -pt understands and agrees -Discussed with Dr Austin Subjective: right groin pain ad abdominal discomfort improved. Denies any leg pain, numbness or tingling Objective: NAD A&Ox3 ROMAN x 4 5/5 and equal in BUE and BLE. Incision c/d/i Catheter Insertion Date: 03/03/18 - Physician Discussed Patient with : Norman Neurosurgery Physical Exam - Vitals, I&O, Labs I and O 03/08/18 03/09/18 03/10/18 05:59 05:59 05:59 Intake Total 400 700 450 Output Total 1300 300 Balance -900 400 450 Intake: Oral (ml) 400 700 450 Output: Urine (ml) 1300 300 Bedside Commode 650 300 Toilet 650 Other: Intake Quantity Yes Sufficient Number of Voids Bedside Commode 1 1 Incontinence 1 Toilet 1 1 Number of Stools Bedside Commode 1 Toilet 1 Vital Signs Temp Pulse Resp BP Pulse Ox 36.9 C 102 H 20 115/65 94 03/09/18 08:10 03/09/18 08:10 03/09/18 08:10 03/09/18 08:10 03/09/18 08:10 Laboratory Results 03/06/18 05:07 03/06/18 05:07 ICD10 Worksheet Patient Problems: Problems Problem Status Onset Chronic Disease Mgmt/Transitional Care Acute Osteoarthritis of left knee Acute
--- NOTE | 2018-03-09 10:04 | PDIAF ---
- Diagnosis Code Status: Full Code - Medication Management Discharge Medications: Medications to Continue on Transfer Acetaminophen [Tylenol 325mg (*)] 325 mg PO DAILY PRN 12/29/16 [Last Taken 03/02 20:00] Atorvastatin Calcium [Lipitor 20 mg (*)] 20 mg PO DAILY 12/29/16 [Last Taken 07:00] Gabapentin [Neurontin 300 MG (*)] 900 mg PO HS 12/29/16 [Last Taken 03/02/18 20: 00 900 mg now] Losartan/Hydrochlorothiazide [Losartan-Hctz 100-25 mg Tab] 1 each PO DAILY 12/29 [Last Taken 03/02/18 07:00] Methylphenidate HCl [Ritalin 20mg (*)] 20 mg PO BID@,14 12/29/16 [Last Taken 03/02/18 13:00] Metoprolol Succinate Xr [Toprol Xl 25 mg (*)] 12.5 mg PO DAILY 12/29/16 [Last Taken 03/03/18 04:00 1/2 tablet] Omeprazole [Prilosec 20 mg] 20 mg PO DAILY 12/29/16 [Last Taken 03/03/18 04:00] Potassium Cl [Klor-Con 10 meq (RX)] 10 meq PO TID 12/29/16 [Last Taken 03/02/18 20:00] Pramipexole Di-HCl [Mirapex 0.125 mg (*)] 0.125 mg PO BID 12/29/16 [Last Taken 03/02/18 13:00] Temazepam [Restoril 15 MG (*)] 30 mg PO HSPRN PRN 12/29/16 [Last Taken 03/02/18 20:00] clonazePAM [Klonopin (*)] 0.5 mg PO HS 12/29/16 [Last Taken 03/02/18 21:00] sulfaSALAzine [Azulfidine 500 MG (*)] 500 mg PO TID 12/29/16 [Last Taken 20:00] Venlafaxine HCl [Venlafaxine HCl ER] 150 mg PO DAILY 03/03/18 [Last Taken 04:00] traMADol [Ultram 50 mg (*)] 50 mg PO Q6H PRN 03/03/18 [Last Taken Unknown] Enoxaparin [Lovenox 40 MG (*)] 40 mg SC DAILY #4 syr 03/09/18 [Last Taken Unknown] Methocarbamol [Robaxin 500 mg (*)] 750 mg PO QID PRN #60 tab 03/09/18 [Last Taken Unknown] Sennosides/Docusate Sodium [Senokot-S] 1 - 2 tab PO BID tab 03/09/18 [Last Taken Unknown] oxyCODONE IR [Oxycodone Ir (*)] 5 - 15 mg PO Q4HRS PRN #60 tab 03/09/18 [Last Taken Unknown] Additional Medication Instructions: Continue Lovenox until Coumadin theraputic. Okay to restart Coumadin tomorrow 03/10/18. 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 Discharge Medications: Refer to the Discharge Home Medication list for PRN reason. - Orders Services needed: Certified Top Tile Decorator, Physical Therapy, Occupational Therapy Diet Recommendation: no restrictions on diet Additional Instructions: keep incision covered and dry. Change daily. Wear brace when OOB, do NOT wear in bed or for shower. - Follow Up Care Current Providers and Referrals: Cris Salas PA [Primary Care Provider] -
[2018-03-09 13:05] VITALS: BP 132/92
--- NOTE | 2018-03-09 15:36 | ASMTCMCOM ---
CM Note CM Note Notes: Pt accepted at [facility] in [place] and [facility] acute rehab; while pt considers being closer to her dghtr in [place] pt ultimately choses [facility] today who have already accepted pt. Pt dghtr is present at the hospital today and is aware of pt choice. Orders sent in [employer]. [facility] scheduled wc transport. ZEUS Hartley to call report. Date Signed: 03/09/2018 03:36 PM Electronically Signed By:GAUDENCIO Sutton
[2018-03-09] MEDS: traMADol 50 MG TAB PO PRN (15:47)
--- NOTE | 2018-03-09 16:22 | ASDISCHSUM ---
Discharge Information Plan Status:SNF Medically Cleared to Leave: Discharge Date:03/09/2018 03:57 PM D/C Disposition:Jail Facility ADT D/C Disposition:Jail Facility Projected Discharge Date:03/08/2018 11:00 AM Transportation at D/C:Wheelchair Van Discharge Delay Reason: Follow-Up Date:03/08/2018 11:00 AM Discharge Slot: Final Diagnosis: Placement Information Referral Type:*[facility]/SNF Referral ID:[id number] Provider Name:[facility] Address 1:[address] Address 2: City:[place] Selection Factors: State:[place] Referral Type:[facility] Referral ID:[id number] Provider Name: Address 1: Phone Number: Address 2: Fax Number: City: Selection Factors: State: Patient Contact Information Contact Name:CARLOS Relationship:Daughter Address: Work Phone: City:[place] Alternate Phone: State/Zip Code:[place] [address] Email: Financial Information Financial Class:Medicare Primary Plan Desc:MEDICARE INPATIENT Primary Plan Number:[id number] Secondary Plan Desc:[place] Secondary Plan Number:[id number] Assessment Information [facility] CM Progress Note CM Note CM Note Notes: Patient admitted for T12-S2 posterior fusion with L2-5 laminectomy and L3-S1 TLIF. She is recovering well and working with PT/OT who have recommended short term rehab upon discharge. I spoke with patient, she would like to go to [facility]. She was there last year following a TKA. I sent a referral to and anticipate they will accept her. Her daughter Iliana in [place] is MDPJOSIANE. Case Management will follow. Date Signed: 03/05/2018 09:30 AM Electronically Signed By:Brianna Donnelly RN [facility] CM Progress Note CM Note CM Note Notes: We have received notification via [employer] that [facility] is able to accept patient when medically stable. CM will continue to follow. Current D/C Plan: [facility] Date Signed: 03/07/2018 02:19 PM Electronically Signed By:Jo Dowd RN [facility] CM Progress Note CM Note CM Note Notes: This morning pt dghtr Ankita requests pt go to inpatient rehab/snf closer to [place] where she lives. Spoke with pt who considers being close to [facility] would be good since Ankita has pt cat and dog and possibly they can visit pt. Referrals sent to [facility] acute rehab and several [place]/[facility]. Ankita then reports [facility] is too far but [facility] is ok. Thus far, [facility] reports they cannot accept pt due to her ASV sleep machine. [facility] in [place] can accept, several referrals pending. Date Signed: 03/08/2018 03:27 PM Electronically Signed By:GAUDENCIO Sutton [facility] CM Progress Note CM Note CM Note Notes: Pt accepted at [facility] in [place] and [facility] acute rehab; while pt considers being closer to her dghtr in [place] pt ultimately choses [facility] today who have already accepted pt. Pt dghtr is present at the hospital today and is aware of pt choice. Orders sent in [employer]. [facility] scheduled wc transport. ZEUS Harltey to call report. Date Signed: 03/09/2018 03:36 PM Electronically Signed By:GAUDENCIO Sutton Intervention Information Intervention Type:*IM-Signed Date of Service:03/09/2018 10:53 AM Patient Type:Inpatient Staff Member:Estrella Washburn Hours: Discipline: Severity: Comment:
== END 2018-03-09 15:57 | DRG 454 ==
LOC: F3N 05:10 → F2N 16:26 → F3N 03-05 22:06
PROVIDERS: ADMIT Neurological Surgery; ATTEND Neurological Surgery
DX: M47.26 Other spondylosis with radiculopathy, lumbar region (principal); M47.27 Other spondylosis with radiculopathy, lumbosacral region; M47.25 Other spondylosis with radiculopathy, thoracolumbar region; M48.062 Spinal stenosis, lumbar region with neurogenic claudication; D62 Acute posthemorrhagic anemia; N17.9 Acute kidney failure, unspecified; G47.33 Obstructive sleep apnea (adult) (pediatric); G47.411 Narcolepsy with cataplexy; M35.3 Polymyalgia rheumatica; K50.90 Crohn's disease, unspecified, without complications; G25.81 Restless legs syndrome; Z96.652 Presence of left artificial knee joint; Z95.5 Presence of coronary angioplasty implant and graft; Z85.3 Personal history of malignant neoplasm of breast; Z87.891 Personal history of nicotine dependence
CPT/HCPCS: 97116-GP; 97162-GP; 97165-GO; 97530-GO; 97530-GP; 97535-GO; C1713; G8978-GP-CK; G8979-GP-CI; G8987-GO-CK; G8988-GO-CJ; J0171; J0690; J1100; J1170; J1650; J2270; J2274; J2370; J2405; J2704; J3010; J7060; P9016; P9041

== ENCOUNTER → 2018-04-20 | Outpatient (CLI) | payer OTHER | LOC: FIMAGING 12:23 | PROVIDERS: ATTEND Physician Assistant Surgical | DX: Z09 Encounter for follow-up examination after completed treatment for conditions other than malignant neoplasm (principal); M48.54XA Collapsed vertebra, not elsewhere classified, thoracic region, initial encounter for fracture; M51.34 Other intervertebral disc degeneration, thoracic region; M40.204 Unspecified kyphosis, thoracic region; Z95.820 Peripheral vascular angioplasty status with implants and grafts; Z98.890 Other specified postprocedural states ==

== ENCOUNTER → 2018-08-09 | Outpatient (CLI) | payer OTHER | LOC: FIMAGING 10:39 | PROVIDERS: ATTEND Internal Medicine Hematology & Oncology | DX: Z12.31 Encounter for screening mammogram for malignant neoplasm of breast (principal); Z85.3 Personal history of malignant neoplasm of breast; Z92.3 Personal history of irradiation ==

== ENCOUNTER → 2018-08-23 | Outpatient (CLI) | payer OTHER | LOC: FIMAGING 13:15 → EDSTATUS 13:15 | PROVIDERS: ATTEND Physician Assistant | DX: Z47.1 Aftercare following joint replacement surgery (principal); Z96.642 Presence of left artificial hip joint ==

== ENCOUNTER → 2018-09-13 | Outpatient (CLI) | payer OTHER | LOC: FIMAGING 12:16 | PROVIDERS: ATTEND Physician Assistant | DX: J98.11 Atelectasis (principal); K44.9 Diaphragmatic hernia without obstruction or gangrene; M48.54XA Collapsed vertebra, not elsewhere classified, thoracic region, initial encounter for fracture ==

== ENCOUNTER → 2018-09-26 | Outpatient (CLI) | payer OTHER | LOC: FIMAGING 14:01 | PROVIDERS: ATTEND Physician Assistant Surgical | DX: M48.062 Spinal stenosis, lumbar region with neurogenic claudication (principal); M51.34 Other intervertebral disc degeneration, thoracic region; M51.35 Other intervertebral disc degeneration, thoracolumbar region; M51.16 Intervertebral disc disorders with radiculopathy, lumbar region; Z98.1 Arthrodesis status ==

== ENCOUNTER → 2019-03-01 | Outpatient (CLI) | payer OTHER | LOC: FIMAGING 14:51 | PROVIDERS: ATTEND Physical Medicine & Rehabilitation | DX: M25.552 Pain in left hip (principal) ==